=== PATIENT | male | born 1960 | race Two or more races ===

== ENCOUNTER 2025-01-31 09:50 | Inpatient (IN) | payer OTHER ==
[~2025-01-31] VITALS: Ht 177.8 cm; Wt 91.1 kg
[~2025-01-31 09:50] MED LIST: AMLO1TAB22 PO; ASPI-543 PO; GLIP10TA9 PO; HYDR12.59 PO; INSU100I70 SC; LEVO75TA6 PO; LISI20TA56 PO
--- NOTE | 2025-01-31 09:56 | ECG ---
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
[2025-01-31 10:55] LABS: Hematocrit 43.0 % (41.0-53.0); Hemoglobin 14.5 g/dL (13.5-17.5); Mean Corpuscular Hemoglobin 30.0 pg (28.0-32.0); Mean Corpuscular Volume 89.0 fL (80.0-100.0); Nucleated Red Blood Cells % 0.0 %
[2025-01-31 11:27] LABS: Albumin 4.7 g/dL (3.2-4.8); Anion Gap 11 (5-15); BUN/Creatinine Ratio 9.8 (10.0-20.0); Bilirubin, Total 0.9 mg/dL (0.2-1.0); Blood Urea Nitrogen 15 mg/dL (9-23); Calcium 10.1 mg/dL (8.7-10.4); Carbon Dioxide 28 mmol/L (20-31); Chloride 98 mmol/L (98-107); Potassium 3.9 mmol/L (3.5-5.1); Sodium 137 mmol/L (136-145); Total Protein 8.1 g/dL (5.7-8.2)
[2025-01-31 11:28] LABS: Alanine Aminotransferase 44 U/L (7-40); Alkaline Phosphatase 44 U/L (46-116); Glucose 294 mg/dL (74-106)
--- NOTE | 2025-01-31 12:15 | DVH ---
CLINICAL HISTORY: chest pain TECHNIQUE: Single view of the chest was obtained. COMPARISON: None FINDINGS: The heart size and pulmonary vasculature are normal. The lungs are clear. IMPRESSION: NO ACUTE CARDIOPULMONARY PROCESS.
[2025-01-31 12:55] VITALS: PULSE 92; RESP 14; O2SAT 98
--- NOTE | 2025-01-31 13:17 | ED.PDOC ---
History of Present Illness HPI Comments 64-year-old male presents to the ER with prior medical history of diabetes, hypertension and the chief complaint of chest pain. Patient reports on having a mild, on and off chest pain for one week for which worsened today and lasted longer associated with sweating and nausea. Family history of heart disease. Denies any other symptoms at this time. Denies chills, fever, /V/D, SOB. No other associated symptoms, modifiers, recent injuries or sick contacts present at this time. Chief Complaint: Chest Pain Time Seen by MD: 12:45 Reviewed Notes: Nurses Notes, Medications, Allergies Allergies: Coded Allergies: NO KNOWN ALLERGIES (Unverified , 01/31/25) Information Source: Patient Mode of Arrival: Ambulatory Severity: Moderate Timing: Days Duration: Since onset, Days Prehospital treatment: None Past Medical History PAST MEDICAL HISTORY: DM, HTN Surgical History: Denies all surgeries Family History Family History: Reviewed,noncontributory to illness, Family hx of heart sandi Social History Smoker: Non-Smoker Alcohol: Denies ETOH Use Drugs: Denies Drug Use Lives In: Home Constitutional: reports: sweats; denies: chills, diaphoresis, fatigue, fever, malaise, weakness, others EENTM: denies: blurred vision, double vision, ear bleeding, ear discharge, ear drainage, ear pain, ear ringing, eye pain, eye redness, hearing loss, mouth pain, mouth swelling, nasal discharge, nose bleeding, nose congestion, nose pain, photophobia, tearing, throat pain, throat swelling, voice changes, others Respiratory: denies: cough, hemoptysis, orthopnea, SOB at rest, shortness of breath, SOB with excertion, stridor, wheezing, others Cardiovascular: reports: chest pain; denies: dizzy spells, diaphoresis, Dyspnea on exertion, edema, irregular heart beat, left arm pain, lightheadedness, palpitations, PND, syncope, others Gastrointestinal: reports: nausea; denies: abdomen distended, abdominal pain, blood streaked bowels, constipated, diarrhea, dysphagia, difficulty swallowing, hematemesis, melena, poor appetite, poor fluid intake, rectal bleeding, rectal pain, vomiting, others Genitourinary: denies: burning, dysuria, flank pain, frequency, hematuria, incontinence, penile discharge, penile sore, pain, testicle pain, testicle swelling, urgency, others Neurological: denies: dizziness, fainting, headache, left sided numbness, left sided weakness, numbness, paresthesia, pre-existing deficit, right sided numbness, right sided weakness, seizure, speech problems, tingling, tremors, weakness, others Musculoskeletal: denies: back pain, gout, joint pain, joint swelling, muscle pain, muscle stiffness, neck pain, others Integumetry: denies: bruises, change in color, change in hair/nails, dryness, laceration, lesions, lumps, rash, wounds, others Allergic/Immunocompromised: denies: Difficulty Healing, Frequent Infections, Hives, Itching, others Hematologic/Lymphatic: denies: anemia, blood clots, easy bleeding, easy bruising, swollen glands, others Endocrine: denies: excessive hunger, excessive sweating, excessive thirst, excessive urination, flushing, intolerance to cold, intolerance to heat, unexplained weight gain, unexplained weight loss, others Psychiatric: denies: anxiety, bipolar disorder, depression, hopeless, panic disorder, schizophrenia, sleepless, suicidal, others All Other Systems: Reviewed and Negative Physical Exam General Appearance: No Apparent Distress, Normal HEENT: Normal ENT Inspection, Pharynx Normal, TMs Normal Neck: Full Range of Motion, Non-Tender, Normal, Normal Inspection Respiratory: Chest Non-Tender, Lungs Clear, No Accessory Muscle Use, No Respiratory Distress, Normal Breath Sounds Cardiovascular: No Edema, No JVD, No Murmur, No Gallop, Normal Peripheral Pulses, Regular Rate/Rhythm Breast Exam: Deferred Gastrointestinal: No Organomegaly, Non Tender, No Pulsatile Mass, Normal Bowel Sounds, Soft Genitalia: Deferred Pelvic: Deferred Rectal: Deferred Extremities: No calf tenderness, Normal capillary refill, Normal inspection, Normal range of motion, Non-tender, No pedal edema Musculoskeletal : Apperance: Normal 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 Was a procedure done?: No EKG EKG : Pulse Rate (adult): 92 [place]: Normal Cardiac Rhythm: NSR Block: None Hypertrophy: None ST: Normal Differential Dx Considerations may include: see mdm X-Ray, Labs, Meds, VS Vital Signs Date Time Temp Pulse Resp B/P (MAP) Pulse Ox O2 Delivery O2 Flow Rate FiO2 01/31/25 13:17 92 01/31/25 12:57 86 01/31/25 12:55 92 14 98 Room Air* 0 21 01/31/25 12:55 98.2 92 14 124/78 (93) 98 98.2 01/31/25 10:49 92 01/31/25 10:00 97.8 98 18 157/101 98 97.8 01/31/25 09:54 92 Lab Test 01/31/25 13:45 01/31/25 11:50 01/31/25 10:20 Range/Units White Blood Count 11.1 H 9.6 4.4-10.8 10^3/uL Red Blood Count 4.66 4.83 4.5-5.90 10^6/uL Hemoglobin 13.8 14.5 13.5-17.5 g/dL Hematocrit 41.4 43.0 41.0-53.0 % Mean Corpuscular Volume 89.0 89.0 80.0-100.0 fL Mean Corpuscular Hemoglobin 29.6 30.0 28.0-32.0 pg Mean Corpuscular Hemoglobin Concent 33.3 33.7 32.0-36.0 g/dL Red Cell Distribution Width 13.4 13.5 11.8-14.3 % Platelet Count 217 219 140-450 10^3/uL Mean Platelet Volume 10.8 10.8 6.9-10.8 fL Neutrophils (%) (Auto) 78.2 75.8 37.0-80.0 % Lymphocytes (%) (Auto) 15.2 15.1 10.0-50.0 % Monocytes (%) (Auto) 5.2 6.5 0.0-12.0 % Eosinophils (%) (Auto) 1.1 2.2 0.0-7.0 % Basophils (%) (Auto) 0.3 0.4 0.0-2.0 % Neutrophils # (Auto) 8.7 H 7.3 1.6-8.6 10 ^3/uL Lymphocytes # (Auto) 1.7 1.4 0.4-5.4 10 ^3/uL Monocytes # (Auto) 0.6 0.6 0-1.3 10 ^3/uL Eosinophils # (Auto) 0.1 0.2 0-0.8 10 ^3/uL Basophils # (Auto) 0 0 0-0.2 10 ^3/uL Nucleated Red Blood Cells 0.0 0.0 % Prothrombin Time 10.9 9.3-11.8 sec Prothrombin Time INR 1.03 0.9-1.15 Activated Partial Thromboplast Time 29.9 24.5-34.5 SEC Troponin I High Sensitivity 1175 *H Pending Sodium Level 137 136-145 mmol/L Potassium Level 3.9 3.5-5.1 mmol/L Chloride Level 98 98-107 mmol/L Carbon Dioxide Level 28 20-31 mmol/L Anion Gap 11 5-15 Blood Urea Nitrogen 15 9-23 mg/dL Creatinine 1.53 H 0.700-1.30 mg/dL Glomerular Filtration Rate Calc 51 >90 mL/min BUN/Creatinine Ratio 9.8 L 10.0-20.0 Serum Glucose 294 H 74-106 mg/dL Calcium Level 10.1 8.7-10.4 mg/dL Total Bilirubin 0.9 0.2-1.0 mg/dL Aspartate Amino Transferase (AST) 28 13-40 U/L Alanine Aminotransferase (ALT) 44 H 7-40 U/L Alkaline Phosphatase 44 L 46-116 U/L Total Protein 8.1 5.7-8.2 g/dL Albumin 4.7 3.2-4.8 g/dL Current Medications Medications (Trade) Dose Ordered Sig/Alysa Route Start Time Stop Time Status Last Admin Aspirin 81 mg ONCE ONCE PO 01/31/25 13:45 01/31/25 13:46 DC 01/31/25 13:48 Heparin Sodium/ Dextrose 250 ml @ 10 mls/hr Q24H IV 01/31/25 13:45 01/31/25 14:21 Heparin Sodium (Porcine) 5,000 units ONCE ONCE IV 01/31/25 13:45 01/31/25 13:46 DC 01/31/25 13:49 Time of 1ST Reevaluation: 13:15 Reevaluation 1ST: Unchanged Patient Education/Counseling: Diagnosis, Treatment, Prognosis Family Education/Counseling: No Family Present SEPSIS Sepsis Screen Date sepsis recognized/suspect: Jan 31, 2025 Time Sepsis recognized/suspect: 1003 Recent Procedure: No On Antibiotic Therapy: No Respiratory Rate >20: No Heart Rate >90: No Temp<36 C (96.8 F) or >38.3 C: No SBP <90 or MAP <65 mmHG: No New Acute Mental Status Change: No Is the patient on CPAP, BIPAP,: No Physician Orders Troponin-I Hs (01/31/25 12:52) Electrocardigram (01/31/25 10:52) Electrocardigram (01/31/25 12:52) Chest Portable (01/31/25 11:42) Platelet Monitoring (01/31/25 13:38) Heparin Per Standardized Proce (01/31/25 13:38) Discontinue All Im Injections (01/31/25 13:38) Heparin Drip/D5w 100units/Ml (01/31/25 13:45) Stat Ekg For Chest Pain (01/31/25 13:38) Platelet Monitoring (01/31/25 13:40) Heparin Per Standardized Proce (01/31/25 13:40) Discontinue All Im Injections (01/31/25 13:40) Stat Ekg For Chest Pain (01/31/25 13:40) Vital Signs Date Time Temp Pulse Resp B/P (MAP) Pulse Ox O2 Delivery O2 Flow Rate FiO2 01/31/25 13:17 92 01/31/25 12:57 86 01/31/25 12:55 92 14 98 Room Air* 0 21 01/31/25 12:55 98.2 92 14 124/78 (93) 98 98.2 01/31/25 10:49 92 01/31/25 10:00 97.8 98 18 157/101 98 97.8 01/31/25 09:54 92 Laboratory Tests Test 01/31/25 10:20 01/31/25 13:45 White Blood Count 9.6 10^3/uL (4.4-10.8) 11.1 10^3/uL (4.4-10.8) H Medications Medications Dose Ordered Sig/Alysa Route Start Time Stop Time Status Last Admin Dose Admin Aspirin 81 mg ONCE ONCE PO 01/31/25 13:45 01/31/25 13:46 DC 01/31/25 13:48 Heparin Sodium (Porcine) 5,000 units ONCE ONCE IV 01/31/25 13:45 01/31/25 13:46 DC 01/31/25 13:49 Heparin Sodium/ Dextrose 250 ml @ 10 mls/hr Q24H IV 01/31/25 13:45 01/31/25 14:21 Departure 1 Departure Time of Disposition: 14:27 (The patient is a 64-year-old male with a history of hypertension and type 2 diabetes who presents with sharp left-sided chest pain. His clinical presentation and rising cardiac biomarkers are consistent with NSTEMI, representing an acute, life-threatening condition requiring critical carelevel management.Data Reviewed / Independent Interpretation:I independently reviewed and interpreted all diagnostic studies obtained during this visit:CBC: benign, no leukocytosis or anemia.BMP: benign except creatinine 1.53, reflecting chronic kidney disease vs. mild RENARD; glucose 294, consistent with hyperglycemia.EKG: independently interpreted by me; shows no STEMI, no acute ischemic changes, no arrhythmia.Initial troponin 610 ? repeat troponin 1175, confirming rising myocardial injury and consistent with evolving NSTEMI.Chest X- ray: independently reviewed; no acute cardiopulmonary process.The rising troponin trend in conjunction with persistent chest pain significantly increases the risk of acute coronary syndrome complications, including malignant arrhythmias, cardiogenic shock, and infarct progression.Assessment, Differential & Management:Differential diagnoses included NSTEMI, unstable angina, aortic dissection, pulmonary embolism, myocarditis, pericarditis, and non-cardiac causes of chest pain. Given the patients risk factors, symptoms, and rising troponin levels, NSTEMI is the leading and confirmed diagnosis.Acute management included:Aspirin administered for antiplatelet therapy.Heparin drip initiated for anticoagulation per ACS protocol.Telemetry monitoring for arrhythmia surveillance.Serial reassessments for chest pain and hemodynamic stability.Preparation for cardiology evaluation and inpatient management, including potential catheterization.The patient remains hemodynamically stable but at high risk for sudden deterioration, including arrhythmias, infarct extension, and decompensated heart failure. Inpatient admission is medically required for ongoing ACS treatment, serial cardiac enzymes, and cardiology- directed care. I coordinated admission with the receiving team.CRITICAL CARE TIME: 41 MINUTESA total of 41 minutes of critical care time was provided, exclusive of separately billable procedures. Critical care was required due to the immediate risk of life-threatening deterioration from NSTEMI with rising troponins.Critical care activities included:Continuous cardiac monitoring and serial bedside reassessmentsIndependent interpretation of EKG, labs, chest X- rayReview and integration of cardiac biomarker trendsManagement of ACS with aspirin and initiation of heparin infusionAdjustment of treatment plan based on evolving clinical dataFrequent evaluation for arrhythmia, hemodynamic instability, and worsening ischemiaCoordination of care with cardiology and the admitting hospital teamHigh-intensity medical decision making throughout his ED courseThe patient was at high risk for malignant arrhythmias, infarct progression, and cardiogenic collapse, warranting critical care.) Impression: Primary Impression: NSTEMI (non-ST elevated myocardial infarction) Additional Impression: Acute chest pain Disposition: ADMITTED INPATIENT Admit to: Tele Condition: Guarded Critical Care Note Critical Care Time?: Yes Stability Stability form required: No Heart Score Heart Score: Heart Score Response (Comments) Value History Moderate Suspicious 1 EKG Repolarization Disturb 1 Age 45-64 1 Risk Factors 1 or 2 risk factors 1 Troponin >3 x's Normal limit 2 Total 6 I personally scribed for JAIMEE PLASCENCIA MD ([email or web address]) on 01/31/25 at 13:17. Electronically submitted by Jerzy Fitzpatrick ([email or web address]). JAIMEE PLASCENCIA MD Jan 31, 2025 13:17
[2025-01-31] MEDS ORDERED: HEPARIN DRIP/D5W 100UNITS/ML 250 ML IV SCH (13:45)
[2025-01-31] MEDS: HEPARIN SODIUM (PORCINE) 5000 UNITS/ML 1ML VIAL IV ONE (13:49)
[2025-01-31 13:58] LABS: Hematocrit 41.4 % (41.0-53.0); Hemoglobin 13.8 g/dL (13.5-17.5); Mean Corpuscular Hemoglobin 29.6 pg (28.0-32.0); Mean Corpuscular Volume 89.0 fL (80.0-100.0); Nucleated Red Blood Cells % 0.0 %
[2025-01-31 14:14] LABS: INR 1.03 (0.9-1.15); Partial Thromboplastin Time 29.9 SEC (24.5-34.5); Prothrombin Time 10.9 sec (9.3-11.8)
[2025-01-31] MEDS: HEPARIN DRIP/D5W 100UNITS/ML 250 ML IV SCH (14:21)
--- NOTE | 2025-01-31 14:46 | ECG ---
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
[2025-01-31 16:42] LABS: Urine Protein, UAD Negative (Negative)
[2025-01-31] MEDS ORDERED: MORPHINE SULFATE 4 MG/ML SYR/VIAL IV PRN (17:15)
[2025-01-31] MEDS ORDERED: ONDANSETRON HCL 4 MG/2 ML VIAL IV PRN ×2 (17:15→20:30)
[2025-01-31] MEDS ORDERED: NITROGLYCERIN 0.4 MG SL TAB SL PRN ×2 (17:15→20:30)
--- NOTE | 2025-01-31 17:49 | CONS ---
Pharmacy Clinical Information: HEPARIN RATE AT 10 ML/HR NEXT APTT ON 01/31 AT 2000. BABAK EMANUEL CONFIRMED AND READ BACK ESTRELLA MCCORD PHARMACIST Jan 31, 2025 17:49
--- NOTE | 2025-01-31 17:51 | ECG ---
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
--- NOTE | 2025-01-31 19:40 | ECG ---
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
[2025-01-31 19:55] VITALS: RESP 16; O2SAT 98
[2025-01-31] MEDS ORDERED: DEXTROSE (50%) 50ML SYRG IV PRN (20:30)
[2025-01-31] MEDS ORDERED: DOCUSATE SOD 100 MG CAP PO PRN (20:30)
[2025-01-31] MEDS ORDERED: MORPHINE SULFATE INJ 2 MG/ml SYRG IV PRN (20:30)
[2025-01-31] MEDS ORDERED: HYDROcodone-ACET 5/325MG TAB PO PRN (20:30)
--- NOTE | 2025-01-31 20:43 | DVHHP2 ---
History of Present Illness Reason for Visit: NSTEMI (non-ST elevated myocardial infarction) History of Present Illness The patient is a 64-year-old male with past medical history of hypothyroidism, d iabetes mellitus, and hypertension who presented to [facility] ED with complaint of chest pain. Patient reports he has been experiencing substernal chest pain, rating 7/10 numeric scale, associated with sweating, nausea, and generalized weakness. Patient was seen and evaluated in the ED, laboratory data shows WBC 11.1, platelets 217, sodium 137, potassium 3.9, BUN 15, creatinine 1.53, glucose 294, calcium 10.1, troponin 3748, AST 28, ALT 44, blood pressure 148/92, heart rate 76, temperature 98.2 F, O2 saturation 97% on room air. Chest x-ray show no acute cardiopulmonary disease. Patient was started on heparin drip, please see medication orders section in the computer. On my assessment, patient denied chest pain, no headache, dizziness, diaphoresis, shortness of breaths, no abdominal pain, diarrhea, nausea, vomiting, fever, no chills. Patient was admitted for further evaluation and medical management. Past Medical History DM, HTN, Hypothyroidism Past Surgical History Denies all surgeries Family History Reviewed, noncontributory to the management of this case. Past Social History The patient lives at home, denies smoking, alcohol or illicit drugs abuse. Review of Systems Constitutional: Yes: Sweats, Weakness; No: Fever, Chills, Malaise, Other Eyes: No: Pain, Vision change, Conjunctivae inflammation, Eyelid inflammation, Other, Redness ENT: No: Ear pain, Ear discharge, Nose pain, Nose discharge, Nose congestion, Mouth pain, Mouth swelling, Throat pain, Throat swelling, Other Respiratory: No: Cough, Dry, Shortness of breath, SOB with excertion, Wheezing, Hemoptysis, Pleuritic Pain, Sputum, Wheezing, Other Cardiovascular: Chest Pain; No: Palpitations, Orthopnea, Paroxysmal Noc. Dyspnea, Edema, Lt Headedness, Other Gastrointestinal: Nausea; No: Vomiting, Abdominal Pain, Diarrhea, Constipation, Melena, Hematochezia, Other Genitourinary: No Dysuria, No Frequency, No Incontinence, No Hematuria, No Retention, No Other Musculoskeletal: No: other, neck pain, shoulder pain, arm pain, back pain, hand pain, leg pain, foot pain Skin: No: Rash, Lesions, Jaundice, Bruising, Other Neurological: No: Weakness, Numbness, Incoordination, Change in speech, Confusion, Seizures, Other Allergies: Coded Allergies: NO KNOWN ALLERGIES (Unverified , 01/31/25) Medications Current Medications Medications Dose Ordered Sig/Alysa Route Start Time Stop Time Status Last Admin Dose Admin Heparin Sodium/ Dextrose 250 ml @ 10 mls/hr Q24H IV 01/31/25 13:45 01/31/25 14:21 10 MLS/HR Morphine Sulfate 4 mg [id number] PRN IV 01/31/25 17:15 Ondansetron HCl 4 mg Q4HPRN PRN IV 01/31/25 17:15 Nitroglycerin 0.4 mg ONCE PRN SL 01/31/25 17:15 Amlodipine Besylate 5 mg DAILY PO 02/01/25 10:00 UNV Carvedilol 12.5 mg Q12HR PO 01/31/25 22:00 UNV Levothyroxine Sodium 88 mcg QAM@0600 PO 02/01/25 06:00 UNV Diagnostic Test (Pha) 1 strip IQ4HR 02/01/25 00:00 UNV Insulin Human Regular IQ4HR SC 02/01/25 00:00 UNV Dextrose 50 ml UD PRN IV 01/31/25 20:30 UNV Sodium Chloride 10 ml Q8HR IV 01/31/25 22:00 UNV Acetaminophen/ Hydrocodone Bitart 1 tab Q4HP PRN PO 01/31/25 20:30 UNV Ondansetron HCl 4 mg Q4HP PRN IV 01/31/25 20:30 UNV Docusate Sodium 100 mg BIDPRN PRN PO 01/31/25 20:30 UNV Exam Vital Signs Vital Signs Date Time Temp Pulse Resp B/P (MAP) Pulse Ox O2 Delivery O2 Flow Rate FiO2 01/31/25 20:00 82 01/31/25 19:00 98.2 14 138/89 (105) 97 98.2 01/31/25 12:55 Room Air* 0 21 General Appearance: Alert, Oriented X3, Cooperative, No acute distress HEENT: Atraumatic, PERRLA, EOMI, Mucous membr. moist/pink Respiratory: Normal air movement Cardiovascular: Regular rate, Normal S1, Normal S2, No murmurs Abdominal: Normal bowel sounds, Soft, No tenderness, No hepatospenomegaly, No masses Extremities: No clubbing, No cyanosis, No edema, Normal pulses, No tenderness/swelling Skin: No rashes, No significant lesion Neuro: Normal speech, Normal tone, Sensation intact, Cranial nerves 3-12 NL, Reflexes 2+, Other (Generalized weakness) Psych/Mental Status: Mental status NL, Mood NL Labs/Xrays Labs Test 01/31/25 20:00 01/31/25 16:10 01/31/25 15:11 01/31/25 13:45 Range/Units Urine Color Light-yellow Yellow Urine Clarity Clear Clear Urine pH 5.5 5.0-9.0 Urine Specific [place] 1.012 1.001-1.035 Urine Protein Negative Negative Urine Ketones Negative Negative Urine Blood Negative Negative /uL Urine Nitrite Negative Negative Urine Bilirubin Negative Negative Urine Urobilinogen Normal Negative mg/dL Urine Leukocyte Esterase Negative Negative /uL Urine RBC 1 0 - 3 /hpf Urine Microscopic WBC < 1 0-3 /HPF Urine Squamous Epithelial Cells None seen <5 /hpf Urine Bacteria None seen None Seen /hpf Urine Glucose 4+ H Normal mg/dL Troponin I High Sensitivity 3748 *H </=54 ng/L White Blood Count 11.1 H 4.4-10.8 10^3/uL Red Blood Count 4.66 4.5-5.90 10^6/uL Hemoglobin 13.8 13.5-17.5 g/dL Hematocrit 41.4 41.0-53.0 % Mean Corpuscular Volume 89.0 80.0-100.0 fL Mean Corpuscular Hemoglobin 29.6 28.0-32.0 pg Mean Corpuscular Hemoglobin Concent 33.3 32.0-36.0 g/dL Red Cell Distribution Width 13.4 11.8-14.3 % Platelet Count 217 140-450 10^3/uL Mean Platelet Volume 10.8 6.9-10.8 fL Neutrophils (%) (Auto) 78.2 37.0-80.0 % Lymphocytes (%) (Auto) 15.2 10.0-50.0 % Monocytes (%) (Auto) 5.2 0.0-12.0 % Eosinophils (%) (Auto) 1.1 0.0-7.0 % Basophils (%) (Auto) 0.3 0.0-2.0 % Neutrophils # (Auto) 8.7 H 1.6-8.6 10 ^3/uL Lymphocytes # (Auto) 1.7 0.4-5.4 10 ^3/uL Monocytes # (Auto) 0.6 0-1.3 10 ^3/uL Eosinophils # (Auto) 0.1 0-0.8 10 ^3/uL Basophils # (Auto) 0 0-0.2 10 ^3/uL Nucleated Red Blood Cells 0.0 % Test 01/31/25 10:20 Range/Units Sodium Level 137 136-145 mmol/L Potassium Level 3.9 3.5-5.1 mmol/L Chloride Level 98 98-107 mmol/L Carbon Dioxide Level 28 20-31 mmol/L Anion Gap 11 5-15 Blood Urea Nitrogen 15 9-23 mg/dL Creatinine 1.53 H 0.700-1.30 mg/dL Glomerular Filtration Rate Calc 51 >90 mL/min BUN/Creatinine Ratio 9.8 L 10.0-20.0 Serum Glucose 294 H 74-106 mg/dL Calcium Level 10.1 8.7-10.4 mg/dL Total Bilirubin 0.9 0.2-1.0 mg/dL Aspartate Amino Transferase (AST) 28 13-40 U/L Alanine Aminotransferase (ALT) 44 H 7-40 U/L Alkaline Phosphatase 44 L 46-116 U/L Total Protein 8.1 5.7-8.2 g/dL Albumin 4.7 3.2-4.8 g/dL PATIENT: YULIA KABA ACCT: [id number] UNIT: [id number] : 1960 LOC: ER ROOM / BED: / AGE / SEX: 64 / M ADM STATUS: REG ER SERVICE 1142 ORDERING PHYSICIAN: JAIMEE PLASCENCIA MD PROCEDURE(s): CXRP - CHEST PORTABLE REASON: chest pain ORDER NUMBER(s): [id number], ACCESSION NUMBER(s): [id number] CLINICAL HISTORY: chest pain TECHNIQUE: Single view of the chest was obtained. COMPARISON: None FINDINGS: The heart size and pulmonary vasculature are normal. The lungs are clear. IMPRESSION: NO ACUTE CARDIOPULMONARY PROCESS. SEPSIS Sepsis Screen Date sepsis recognized/suspect: Jan 31, 2025 Time Sepsis recognized/suspect: 1255 Recent Procedure: No On Antibiotic Therapy: No Respiratory Rate >20: No Heart Rate >90: Yes Temp<36 C (96.8 F) or >38.3 C: No SBP <90 or MAP <65 mmHG: No New Acute Mental Status Change: No Is the patient on CPAP, BIPAP,: No Physician Orders Platelet Monitoring (01/31/25 13:38) Heparin Per Standardized Proce (01/31/25 13:38) Discontinue All Im Injections (01/31/25 13:38) Heparin Drip/D5w 100units/Ml (01/31/25 13:45) Stat Ekg For Chest Pain (01/31/25 13:38) Platelet Monitoring (01/31/25 13:40) Heparin Per Standardized Proce (01/31/25 13:40) Discontinue All Im Injections (01/31/25 13:40) Stat Ekg For Chest Pain (01/31/25 13:40) PTPTT (01/31/25 20:00) Complete Blood Count (02/01/25 04:00) Heparin Per Pharmacy Protocol (01/31/25 14:34) *Consult Dr.Mukeshchandra Payton (01/31/25 16:00) * Cardiology Consult (01/31/25 16:01) Electrocardigram (01/31/25 17:05) Morphine Sulfate Injection (01/31/25 17:15) Ondansetron Hcl (Zofran) (01/31/25 17:15) Nitroglycerin Sublingual (Ntrostat Subli (01/31/25 17:15) Amlodipine Tablet (Norvasc Tablet) (02/01/25 10:00) Carvedilol Tablet (Coreg Tablet) (01/31/25 22:00) Consistent Carb(Ccho)Diabetes (02/01/25 Breakfast) Thyroid Stimulating Hormone (02/01/25 04:00) Levothyroxine Tablet (Synthroid Tablet) (02/01/25 06:00) Glucose Blood (Accu-Chek Comfort Curve T (02/01/25 00:00) Insulin R (Human) (Insulin R) (02/01/25 00:00) Dextrose 50% Syringe (01/31/25 20:30) Allergies (01/31/25 20:21) Code Status (01/31/25 20:21) Sodium Chloride Lock (Saline Lock Ns) (01/31/25 22:00) Oxygen Per Hour (01/31/25 20:) Hydrocodone-Acet 5/325mg Tab ([place] 32 (01/31/25 20:30) Ondansetron Hcl (Zofran) (01/31/25 20:30) Docusate Sodium Capsule (Colace Capsule) (01/31/25 20:30) Fall Risk Precautions In Place QSHIFT (01/31/25 20:21) Comprehensive Metabolic Panel (02/01/25 04:00) Admit (01/31/25 20:29) Nitroglycerin Sublingual (Ntrostat Subli (01/31/25 20:) Morphine Sulfate Injection (01/31/25 20:) Notify Of Changes From Base (01/31/25 20:) Tube Sizer Operator For 24 Hours (01/31/25 20:) Emergency Dysrhythmia Protocol (01/31/25 20:) Rhythm Strips Once Every Shift (01/31/25 20:29) Oxygen By Nasal Cannula (01/31/25 20:29) Vital Signs Date Time Temp Pulse Resp B/P (MAP) Pulse Ox O2 Delivery O2 Flow Rate FiO2 01/31/25 20:00 82 01/31/25 19:00 98.2 66 14 138/89 (105) 97 98.2 01/31/25 18:00 76 15 148/92 (110) 95 01/31/25 17:00 79 20 151/92 (111) 95 01/31/25 16:11 84 01/31/25 16:00 102 01/31/25 16:00 98.1 98 18 147/81 (103) 96 98.1 01/31/25 15:00 82 16 143/94 (110) 96 01/31/25 14:00 88 15 141/92 (108) 97 01/31/25 13:17 92 01/31/25 12:57 86 01/31/25 12:55 92 14 98 Room Air* 0 21 01/31/25 12:55 98.2 92 14 124/78 (93) 98 98.2 Laboratory Tests Test 01/31/25 10:20 01/31/25 13:45 White Blood Count 9.6 10^3/uL (4.4-10.8) 11.1 10^3/uL (4.4-10.8) H Medications Medications Dose Ordered Sig/Alysa Route Start Time Stop Time Status Last Admin Dose Admin Aspirin 81 mg ONCE ONCE PO 01/31/25 13:45 01/31/25 13:46 DC 01/31/25 13:48 81 MG Heparin Sodium (Porcine) 5,000 units ONCE ONCE IV 01/31/25 13:45 01/31/25 13:46 DC 01/31/25 13:49 5,000 UNITS Heparin Sodium/ Dextrose 250 ml @ 10 mls/hr Q24H IV 01/31/25 13:45 01/31/25 14:21 10 MLS/HR Assessment/Plan Assessment/Plan NSTEMI (non-ST elevated myocardial infarction) Acute chest pain Acute renal injury Diabetes mellitus with hyperglycemia Generalized weakness Plan 1. Admit to telemetry unit 2. Breathing treatment 3. Pain control management 4. Management of fluids and electrolytes 5. Consultation for Cardiology 6. Diagnostic tests chest x-ray 7. DVT prophylaxis-on heparin drip 8. Repeat labs CBC, CMP in a.m. 9. Continue with current medical management 10. Treatment plan discussed with patient and RN. Patient verbalized understanding. Plan discussed with: Patient, Other (RN) My Orders Orders - JANA STAPLES DNP Procedure Category Date Status Time Amlodipine Tablet PHA 02/01/25 Logged (Norvasc Tablet) 10:00 Carvedilol Tablet PHA 01/31/25 Logged (Coreg Tablet) 22:00 Consistent DIET 02/01/25 Transmitted Carb(Ccho)Diabetes Breakfast Thyroid Stimulating LAB 02/01/25 Verified Hormone 04:00 Levothyroxine Tablet PHA 02/01/25 Logged (Synthroid Tablet) 06:00 Glucose Blood PHA 02/01/25 Logged (Accu-Chek Comfort 00:00 Insulin R (Human) PHA 02/01/25 Logged (Insulin R) 00:00 Dextrose 50% Syringe PHA 01/31/25 Logged 20:30 Allergies JOEL 01/31/25 In Process 20:21 Code Status CODE 01/31/25 Transmitted 20:21 Sodium Chloride Lock PHA 01/31/25 Logged (Saline Lock Ns) 22:00 Oxygen Per Hour RT 01/31/25 Transmitted 20:21 Hydrocodone-Acet [facility] 01/31/25 Logged 5/325mg Tab ([place] 20:30 Ondansetron Hcl PHA 01/31/25 Logged (Zofran) 20:30 Docusate Sodium [facility] 01/31/25 Logged Capsule (Colace 20:30 Fall Risk Precautions [facility] 01/31/[address] 20:21 Comprehensive LAB 02/01/25 Verified Metabolic Panel 04:00 Admit ADMIT 01/31/25 Verified 20:29 Nitroglycerin PHA 01/31/25 Verified Sublingual (Ntrostat 20:30 Morphine Sulfate [facility] 01/31/25 Verified Injection 20:30 Notify Md Of Changes [facility] 01/31/25 Verified From Base 20:29 Tube Sizer Operator For [facility] 01/31/25 Verified 24 Hours 20:29 Emergency Dysrhythmia [facility] 01/31/25 Verified Protocol 20:29 Rhythm Strips Once [facility] 01/31/25 Verified Every Shift 20:29 Oxygen By Nasal RT 01/31/25 Verified Cannula 20:29 Problem List: (1) NSTEMI (non-ST elevated myocardial infarction) (2) Acute chest pain (3) Acute renal injury (4) Diabetes mellitus with hyperglycemia (5) Generalized weakness Date of Service: Jan 31, 2025 Billing Provider: JANA STAPLES DNP Common Visit Codes: [id number] INP/OBS CARE (HIGH) JANA STAPLES DNP Jan 31, 2025 20:43
[2025-01-31 20:44] LABS: INR 1.02 (0.9-1.15); Partial Thromboplastin Time 54.8 SEC (24.5-34.5); Prothrombin Time 10.8 sec (9.3-11.8)
[2025-01-31] MEDS: SODIUM CHLOR 0.9% PF (SALINE LOCK) 10ML VIAL/SYR IV SCH (22:00)
[2025-01-31] MEDS: CARVEDILOL 12.5 MG TAB PO SCH (22:44)
--- NOTE | 2025-01-31 23:16 | DVHINCON2 ---
Date of service: Jan 31, 2025 Referring Physician Pedro Reason for Consultation NSTEMI History of Present Illness This is a 64-year-old male with a prior medical history of diabetes, hypertension who presents to the ED with complaints of chief complaint of chest pain. Patient reports on having a mild, on and off chest pain for one week for which worsened today and lasted longer associated with sweating and nausea. Patietn reports a family history of heart disease. WBC 11.1, platelets 217, sodium 137, potassium 3.9, BUN 15, creatinine 1.53, glucose 294, calcium 10.1, troponin 3748, AST 28, ALT 44. Chest x-ray showed NAD. EKG is NSR at 92. Patient was admitted to the hospital. I am asked to consult on this patient. Allergies: Coded Allergies: NO KNOWN ALLERGIES (Unverified , 01/31/25) Current Medications Current Medications Medications (Trade) Dose Ordered Sig/Alysa Route PRN Reason Start Time Stop Time Status Last Admin Heparin Sodium/ Dextrose 250 ml @ 10 mls/hr Q24H IV 01/31/25 13:45 01/31/25 14:21 Heparin Sodium/ Dextrose 250 ml @ 10.8 mls/hr Q23H9M IV 01/31/25 13:45 01/31/25 13:57 DC Morphine Sulfate 4 mg [id number] PRN IV chest pain 01/31/25 17:15 Ondansetron HCl (Zofran) 4 mg Q4HPRN PRN IV n/v 01/31/25 17:15 Nitroglycerin (Ntrostat Sublingual) 0.4 mg ONCE PRN SL chest pain 01/31/25 17:15 Review of Systems Constitutional: reports: sweats; denies: chills, diaphoresis, fatigue, fever, malaise, weakness, others EENTM: denies: blurred vision, double vision, ear bleeding, ear discharge, ear drainage, ear pain, ear ringing, eye pain, eye redness, hearing loss, mouth pain , mouth swelling, nasal discharge, nose bleeding, nose congestion, nose pain, photophobia, tearing, throat pain, throat swelling, voice changes, others Respiratory: denies: cough, hemoptysis, orthopnea, SOB at rest, shortness of breath, SOB with excertion, stridor, wheezing, others Cardiovascular: reports: chest pain; denies: dizzy spells, diaphoresis, Dyspnea on exertion, edema, irregular heart beat, left arm pain, lightheadedness, palpitations, PND, syncope, others Gastrointestinal: reports: nausea; denies: abdomen distended, abdominal pain, blood streaked bowels, constipated, diarrhea, dysphagia, difficulty swallowing, hematemesis, melena, poor appetite, poor fluid intake, rectal bleeding, rectal pain, vomiting, others Genitourinary: denies: burning, dysuria, flank pain, frequency, hematuria, incontinence, penile discharge, penile sore, pain, testicle pain, testicle swelling, urgency, others Neurological: denies: dizziness, fainting, headache, left sided numbness, left sided weakness, numbness, paresthesia, pre-existing deficit, right sided numbness, right sided weakness, seizure, speech problems, tingling, tremors, weakness, others Musculoskeletal: denies: back pain, gout, joint pain, joint swelling, muscle pain, muscle stiffness, neck pain, others Integumetry: denies: bruises, change in color, change in hair/nails, dryness, laceration, lesions, lumps, rash, wounds, others Allergic/Immunocompromised: denies: Difficulty Healing, Frequent Infections, Hives, Itching, others Hematologic/Lymphatic: denies: anemia, blood clots, easy bleeding, easy bruising, swollen glands, others Endocrine: denies: excessive hunger, excessive sweating, excessive thirst, excessive urination, flushing, intolerance to cold, intolerance to heat, unexplained weight gain, unexplained weight loss, others Psychiatric: denies: anxiety, bipolar disorder, depression, hopeless, panic disorder, schizophrenia, sleepless, suicidal, others All Other Systems: Reviewed and Negative Vital Signs Vital Signs Date Time Temp Pulse Resp B/P (MAP) Pulse Ox O2 Delivery O2 Flow Rate FiO2 01/31/25 16:11 84 01/31/25 15:00 16 143/94 (110) 96 01/31/25 12:55 Room Air* 0 21 01/31/25 12:55 98.2 98.2 Physical Exam GENERAL: Alert and oriented x 3. No acute distress. EYES: PERRL, EOMI. Anicteric. HENT: Moist mucous membranes. LUNGS: Clear to auscultation bilaterally. CARDIOVASCULAR: Regular rate and rhythm. ABDOMEN: Soft, nontender and nondistended. EXTREMITIES: No edema. NEUROLOGIC: No focal neurological deficits. SKIN: Warm, dry. Labs/Diagnostic Data Labs Test 01/31/25 16:10 01/31/25 15:11 01/31/25 13:45 01/31/25 10:20 Range/Units Urine Color Light-yellow Yellow Urine Clarity Clear Clear Urine pH 5.5 5.0-9.0 Urine Specific [place] 1.012 1.001-1.035 Urine Protein Negative Negative Urine Ketones Negative Negative Urine Blood Negative Negative /uL Urine Nitrite Negative Negative Urine Bilirubin Negative Negative Urine Urobilinogen Normal Negative mg/dL Urine Leukocyte Esterase Negative Negative /uL Urine RBC 1 0 - 3 /hpf Urine Microscopic WBC < 1 0-3 /HPF Urine Squamous Epithelial Cells None seen <5 /hpf Urine Bacteria None seen None Seen /hpf Urine Glucose 4+ H Normal mg/dL Troponin I High Sensitivity 3748 *H </=54 ng/L White Blood Count 11.1 H 4.4-10.8 10^3/uL Red Blood Count 4.66 4.5-5.90 10^6/uL Hemoglobin 13.8 13.5-17.5 g/dL Hematocrit 41.4 41.0-53.0 % Mean Corpuscular Volume 89.0 80.0-100.0 fL Mean Corpuscular Hemoglobin 29.6 28.0-32.0 pg Mean Corpuscular Hemoglobin Concent 33.3 32.0-36.0 g/dL Red Cell Distribution Width 13.4 11.8-14.3 % Platelet Count 217 140-450 10^3/uL Mean Platelet Volume 10.8 6.9-10.8 fL Neutrophils (%) (Auto) 78.2 37.0-80.0 % Lymphocytes (%) (Auto) 15.2 10.0-50.0 % Monocytes (%) (Auto) 5.2 0.0-12.0 % Eosinophils (%) (Auto) 1.1 0.0-7.0 % Basophils (%) (Auto) 0.3 0.0-2.0 % Neutrophils # (Auto) 8.7 H 1.6-8.6 10 ^3/uL Lymphocytes # (Auto) 1.7 0.4-5.4 10 ^3/uL Monocytes # (Auto) 0.6 0-1.3 10 ^3/uL Eosinophils # (Auto) 0.1 0-0.8 10 ^3/uL Basophils # (Auto) 0 0-0.2 10 ^3/uL Nucleated Red Blood Cells 0.0 % Prothrombin Time 10.9 9.3-11.8 sec Prothrombin Time INR 1.03 0.9-1.15 Activated Partial Thromboplast Time 29.9 24.5-34.5 SEC Sodium Level 137 136-145 mmol/L Potassium Level 3.9 3.5-5.1 mmol/L Chloride Level 98 98-107 mmol/L Carbon Dioxide Level 28 20-31 mmol/L Anion Gap 11 5-15 Blood Urea Nitrogen 15 9-23 mg/dL Creatinine 1.53 H 0.700-1.30 mg/dL Glomerular Filtration Rate Calc 51 >90 mL/min BUN/Creatinine Ratio 9.8 L 10.0-20.0 Serum Glucose 294 H 74-106 mg/dL Calcium Level 10.1 8.7-10.4 mg/dL Total Bilirubin 0.9 0.2-1.0 mg/dL Aspartate Amino Transferase (AST) 28 13-40 U/L Alanine Aminotransferase (ALT) 44 H 7-40 U/L Alkaline Phosphatase 44 L 46-116 U/L Total Protein 8.1 5.7-8.2 g/dL Albumin 4.7 3.2-4.8 g/dL Assessment NSTEMI (non-ST elevated myocardial infarction). Chest pain. RENARD. Diabetes mellitus with hyperglycemia. Generalized weakness. Plan/Recommendation I agree with your ongoing assessment and care of plan. Morphine and [place] for pain management. Amlodipine, Coreg. Heparin drip per pharmacy. Nitro SL. Additional plan as per the hospital course. A total of 45 minutes was spent reviewing the patient record, examining the patient, making a diagnostic and therapeutic plan, discussing this plan with medical personnel, following up on diagnostic studies and following the patient for clinical stability excluding any and all procedures. At least 50% of this time was spent in direct, [id number] contact. Plan discussed with: Patient GATITO CRONIN MD Jan 31, 2025 17:33
[2025-02-01] VITALS (8 sets, daily range): BP systolic 115–124; BP diastolic 76–82; PULSE 62–78; RESP 16–20; TEMP 97.6–98.5; O2SAT 97–98
[2025-02-01] MEDS: ACCU-CHEK COMFORT CURVE STRIP VI SCH (01:48)
[2025-02-01] MEDS: InsuLIN REG 1unit/0.01ml Soln (100units/ml) SC SCH (01:58)
[2025-02-01] MEDS: LEVOTHYROXINE SODIUM 88 MCG TAB PO SCH (05:52)
[2025-02-01 10:31] LABS: Hematocrit 39.3 % (41.0-53.0); Hemoglobin 13.6 g/dL (13.5-17.5); Mean Corpuscular Hemoglobin 30.7 pg (28.0-32.0); Mean Corpuscular Volume 88.5 fL (80.0-100.0); Nucleated Red Blood Cells % 0.1 %
[2025-02-01 12:34] LABS: INR 1.04 (0.9-1.15); Partial Thromboplastin Time 51.0 SEC (24.5-34.5); Prothrombin Time 11.0 sec (9.3-11.8)
--- NOTE | 2025-02-01 12:58 | DVHPN2 ---
Subjective No chest pain Reviewed: H&P Changes from previous H/P or p: No Changes Eyes: No Pain, No Vision change, No Conjunctivae inflammation, No Eyelid inflammation, No Other, No Redness ENT: No Ear pain, No Ear discharge, No Nose pain, No Nose discharge, No Nose congestion, No Mouth pain, No Mouth swelling, No Throat pain, No Throat swelling, No Other Cardiovascular: Chest Pain; No Palpitations, No Orthopnea, No Paroxysmal Noc. Dyspnea, No Edema, No Lt Headedness, No Other Respiratory: No Cough, No Dry, No Shortness of breath, No SOB with excertion, No Wheezing, No Hemoptysis, No Pleuritic Pain, No Sputum, No Other Gastrointestinal: Nausea; No Vomiting, No Abdominal Pain, No Diarrhea, No Constipation, No Melena, No Hematochezia, No Other Genitourinary: No Dysuria, No Frequency, No Incontinence, No Hematuria, No Retention, No Other Musculoskeletal: No other, No neck pain, No shoulder pain, No arm pain, No back pain, No hand pain, No leg pain, No foot pain Skin: No Rash, No Lesions, No Jaundice, No Bruising, No Other Objective Vitals Vital Signs Date Time Temp Pulse Resp B/P (MAP) Pulse Ox O2 Delivery O2 Flow Rate FiO2 02/01/25 12:15 98.4 73 20 115/79 (91) 97 98.4 02/01/25 03:06 Room Air* 0 21 Intake/Output Intake and Output 02/01/25 07:00 Intake Total 100 ml Output Total 200 ml Balance -100 ml Intake Oral 0 ml IV Total 100 ml Output Urine Total 200 ml General Appearance: Alert, Oriented X3 HEENT: Atraumatic Lungs: Clear to auscultation Cardiovascular: Regular rate, Normal S1, Normal S2 Abdomen: Normal bowel sounds Medications Current Medications Medications Dose Ordered Sig/Alysa Route Start Time Stop Time Status Last Admin Dose Admin Heparin Sodium/ Dextrose 250 ml @ 10 mls/hr Q24H IV 01/31/25 13:45 01/31/25 14:21 10 MLS/HR Morphine Sulfate 4 mg [id number] PRN IV 01/31/25 17:15 Ondansetron HCl 4 mg Q4HPRN PRN IV 01/31/25 17:15 Nitroglycerin 0.4 mg ONCE PRN SL 01/31/25 17:15 Amlodipine Besylate 5 mg DAILY PO 02/01/25 10:00 02/01/25 09:12 5 MG Carvedilol 12.5 mg Q12HR PO 01/31/25 22:00 02/01/25 09:12 12.5 MG Levothyroxine Sodium 88 mcg QAM@0600 PO 02/01/25 06:00 02/01/25 05:52 88 MCG Diagnostic Test (Pha) 1 strip IQ4HR 02/01/25 00:00 02/01/25 04:38 1 STRIP Insulin Human Regular IQ4HR SC 02/01/25 00:00 02/01/25 08:22 2 UNITS Dextrose 50 ml UD PRN IV 01/31/25 20:30 Sodium Chloride 10 ml Q8HR IV 01/31/25 22:00 02/01/25 05:52 10 ML Acetaminophen/ Hydrocodone Bitart 1 tab Q4HP PRN PO 01/31/25 20:30 Ondansetron HCl 4 mg Q4HP PRN IV 01/31/25 20:30 Docusate Sodium 100 mg BIDPRN PRN PO 01/31/25 20:30 Nitroglycerin 0.4 mg Q5MINP PRN SL 01/31/25 20:30 Morphine Sulfate 2 mg Q30M PRN IV 01/31/25 20:30 Laboratory Results Laboratory Tests 02/01/25 09:37 Chemistry Test 02/01/25 09:37 Albumin Pending Calcium Level Pending Total Protein Pending Coagulation Test 01/31/25 13:45 01/31/25 20:00 02/01/25 01:56 02/01/25 11:23 Prothrombin Time 10.9 sec (9.3-11.8) 10.8 sec (9.3-11.8) 11.0 sec (9.3-11.8) Prothrombin Time INR 1.03 (0.9-1.15) 1.02 (0.9-1.15) 1.04 (0.9-1.15) Activated Partial Thromboplast Time 29.9 SEC (24.5-34.5) 54.8 SEC (24.5-34.5) H 51.4 SEC (24.5-34.5) H 51.0 SEC (24.5-34.5) H LFT Test 02/01/25 09:37 Alanine Aminotransferase (ALT) Pending Alkaline Phosphatase Pending Aspartate Amino Transferase (AST) Pending Total Bilirubin Pending HgA1c, TSH Test 02/01/25 09:37 Thyroid Stimulating Hormone (TSH) 4.07 uIU/mL (0.55-4.78) Urinalysis Test 01/31/25 16:10 Urine Color Light-yellow (Yellow) Urine Clarity Clear (Clear) Urine pH 5.5 (5.0-9.0) Urine Specific [place] 1.012 (1.001-1.035) Urine Protein Negative (Negative) Urine Ketones Negative (Negative) Urine Blood Negative /uL (Negative) Urine Nitrite Negative (Negative) Urine Bilirubin Negative (Negative) Urine Urobilinogen Normal mg/dL (Negative) Urine Leukocyte Esterase Negative /uL (Negative) Urine RBC 1 /hpf (0 - 3) Urine Microscopic WBC < 1 /HPF (0-3) Urine Squamous Epithelial Cells None seen /hpf (<5) Urine Bacteria None seen /hpf (None Seen) Urine Glucose 4+ mg/dL (Normal) H Assessment/Plan Assessment/Plan NSTEMI (non-ST elevated myocardial infarction) Acute chest pain Acute renal injury Diabetes mellitus with hyperglycemia Generalized weakness Continue heparin drip Trend troponins Echo Cardiology on consult Plan discussed with: Patient Date of Service: Feb 01, 2025 Billing Provider: ALEXIA JACOBS MD Common Visit Codes: [id number] INP/OBS CARE(HIGH) ALEXIA JACOBS MD Feb 01, 2025 12:58
[2025-02-01 14:59] LABS: Albumin 4.0 g/dL (3.2-4.8); Anion Gap 11 (5-15); BUN/Creatinine Ratio 13.8 (10.0-20.0); Blood Urea Nitrogen 17 mg/dL (9-23); Calcium 9.5 mg/dL (8.7-10.4); Carbon Dioxide 25 mmol/L (20-31); Chloride 99 mmol/L (98-107); Potassium 4.2 mmol/L (3.5-5.1); Total Protein 6.8 g/dL (5.7-8.2)
[2025-02-01 15:00] LABS: Alanine Aminotransferase 46 U/L (7-40); Alkaline Phosphatase 40 U/L (46-116); Bilirubin, Total 0.7 mg/dL (0.2-1.0); Glucose 256 mg/dL (74-106); INR 1.03 (0.9-1.15); Partial Thromboplastin Time 50.4 SEC (24.5-34.5); Prothrombin Time 10.9 sec (9.3-11.8); Sodium 135 mmol/L (136-145)
[2025-02-01] MEDS ORDERED: METF-370 PO (20:39)
[2025-02-01] MEDS ORDERED: LEVO50TA7 PO (20:39)
--- NOTE | 2025-02-01 21:44 | DVHPN2 ---
Progress Note - Dictate Date Seen: Feb 01, 2025 Medical Necessity Reason Pt with a Central, PICC or Fol: No Subjective Patient was seen and evaluated in follow up. Patient is complaining of generalized pain. Patient is maintained on Heparin drip. AST 45, ALT 46. Telemetry reviewed. vital signs Vital Sign Date Time Temp Pulse Resp B/P (MAP) Pulse Ox O2 Delivery O2 Flow Rate FiO2 02/01/25 12:15 98.4 73 20 115/79 (91) 97 98.4 02/01/25 03:06 Room Air* 0 21 Total Intake and Output 01/31/25 01/31/25 02/01/25 15:00 23:00 07:00 Intake Total 10 ml 70 ml 20 ml Output Total 200 ml Balance 10 ml -130 ml 20 ml medications Current Medications Medications Dose Ordered Sig/Alysa Route Start Time Stop Time Status Last Admin Dose Admin Heparin Sodium/ Dextrose 250 ml @ 10 mls/hr Q24H IV 01/31/25 13:45 02/01/25 14:36 10 MLS/HR Morphine Sulfate 4 mg [id number] PRN IV 01/31/25 17:15 Ondansetron HCl 4 mg Q4HPRN PRN IV 01/31/25 17:15 Nitroglycerin 0.4 mg ONCE PRN SL 01/31/25 17:15 Amlodipine Besylate 5 mg DAILY PO 02/01/25 10:00 02/01/25 09:12 5 MG Carvedilol 12.5 mg Q12HR PO 01/31/25 22:00 02/01/25 09:12 12.5 MG Levothyroxine Sodium 88 mcg QAM@0600 PO 02/01/25 06:00 02/01/25 05:52 88 MCG Diagnostic Test (Pha) 1 strip IQ4HR 02/01/25 00:00 02/01/25 04:38 1 STRIP Insulin Human Regular IQ4HR SC 02/01/25 00:00 02/01/25 13:20 3 UNITS Dextrose 50 ml UD PRN IV 01/31/25 20:30 Sodium Chloride 10 ml Q8HR IV 01/31/25 22:00 02/01/25 05:52 10 ML Acetaminophen/ Hydrocodone Bitart 1 tab Q4HP PRN PO 01/31/25 20:30 Ondansetron HCl 4 mg Q4HP PRN IV 01/31/25 20:30 Docusate Sodium 100 mg BIDPRN PRN PO 01/31/25 20:30 Nitroglycerin 0.4 mg Q5MINP PRN SL 01/31/25 20:30 Morphine Sulfate 2 mg Q30M PRN IV 01/31/25 20:30 objective GENERAL: Alert and oriented x 3. No acute distress. EYES: PERRL, EOMI. Anicteric. HENT: Moist mucous membranes. LUNGS: Clear to auscultation bilaterally. CARDIOVASCULAR: Regular rate and rhythm. ABDOMEN: Soft, nontender and nondistended. EXTREMITIES: No edema. NEUROLOGIC: No focal neurological deficits. SKIN: Warm, dry. laboratory and microbiology Laboratory Tests 02/01/25 14:05 02/01/25 09:37 Test 02/01/25 14:05 Range/Units Serum Glucose 256 H 74-106 mg/dL Problem List NSTEMI (non-ST elevated myocardial infarction). Chest pain. RENARD. Diabetes mellitus with hyperglycemia. Generalized weakness. Assessment/Plan Continued all current supportive medical care. Morphine and [place] for pain management. Amlodipine, Coreg. Heparin drip per pharmacy. Nitro SL. Additional plan as per the hospital course. Plan discussed with: Patient GATITO CRONIN MD Feb 01, 2025 15:11
[2025-02-02] VITALS (8 sets, daily range): BP systolic 108–125; BP diastolic 73–85; PULSE 56–73; RESP 14–18; TEMP 97.4–98.4; O2SAT 96–98
[2025-02-02 07:35] LABS: INR 1.03 (0.9-1.15); Partial Thromboplastin Time 52.2 SEC (24.5-34.5); Prothrombin Time 10.9 sec (9.3-11.8)
[2025-02-02 07:36] LABS: Hematocrit 39.6 % (41.0-53.0); Hemoglobin 13.6 g/dL (13.5-17.5); Mean Corpuscular Hemoglobin 30.4 pg (28.0-32.0); Mean Corpuscular Volume 88.7 fL (80.0-100.0); Nucleated Red Blood Cells % 0.1 %
--- NOTE | 2025-02-02 08:18 | CONS ---
Pharmacy Clinical Information: HEPARIN DRIP, ACS PROTOCOL @0518 APTT 52.2- NO BOLUS, NO CHANGE 4 CONSECUTIVE APTT THERAPEUTIC => APTT EVERY 24 HRS NEXT APTT DRAW SCHEDULED @0500 PER RX PROTOCOL CONFIRMED AND READ BACK WITH LIAN AWAD [facility] RESIDENT Feb 02, 2025 08:18
--- NOTE | 2025-02-02 11:57 | DVHPN2 ---
Subjective The patient seen and examined at beside. Still have chest pain Reviewed: Care Plan, H&P, Labs, Medications, Previous Orders, Radiology Changes from previous H/P or p: No Changes Eyes: No Pain, No Vision change, No Conjunctivae inflammation, No Eyelid inflammation, No Other, No Redness ENT: No Ear pain, No Ear discharge, No Nose pain, No Nose discharge, No Nose congestion, No Mouth pain, No Mouth swelling, No Throat pain, No Throat swelling, No Other Cardiovascular: Chest Pain; No Palpitations, No Orthopnea, No Paroxysmal Noc. Dyspnea, No Edema, No Lt Headedness, No Other Respiratory: No Cough, No Dry, No Shortness of breath, No SOB with excertion, No Wheezing, No Hemoptysis, No Pleuritic Pain, No Sputum, No Other Gastrointestinal: Nausea; No Vomiting, No Abdominal Pain, No Diarrhea, No Constipation, No Melena, No Hematochezia, No Other Genitourinary: No Dysuria, No Frequency, No Incontinence, No Hematuria, No Retention, No Other Musculoskeletal: No other, No neck pain, No shoulder pain, No arm pain, No back pain, No hand pain, No leg pain, No foot pain Skin: No Rash, No Lesions, No Jaundice, No Bruising, No Other Objective Vitals Vital Signs Date Time Temp Pulse Resp B/P (MAP) Pulse Ox O2 Delivery O2 Flow Rate FiO2 02/02/25 10:08 61 126/80 02/02/25 09:15 97.4 14 98 97.4 02/02/25 08:00 Room Air* 0 21 Intake/Output Intake and Output 02/02/25 07:00 Intake Total 1240 ml Balance 1240 ml Intake Oral 1240 ml # Voids 4 # Bowel Movements 1 General Appearance: Alert, Oriented X3 HEENT: Atraumatic, PERRLA, EOMI, Mucous membr. moist/pink Lungs: Clear to auscultation, Normal air movement Cardiovascular: Regular rate, Normal S1, Normal S2, No murmurs, Gallops, Rubs Abdomen: Normal bowel sounds Neuro: Cranial nerves 3-12 NL Psych/Mental Status: Mental status NL Medications Current Medications Medications Dose Ordered Sig/Alysa Route Start Time Stop Time Status Last Admin Dose Admin Heparin Sodium/ Dextrose 250 ml @ 10 mls/hr Q24H IV 01/31/25 13:45 02/01/25 14:36 10 MLS/HR Morphine Sulfate 4 mg [id number] PRN IV 01/31/25 17:15 Ondansetron HCl 4 mg Q4HPRN PRN IV 01/31/25 17:15 Nitroglycerin 0.4 mg ONCE PRN SL 01/31/25 17:15 Amlodipine Besylate 5 mg DAILY PO 02/01/25 10:00 02/02/25 10:08 5 MG Carvedilol 12.5 mg Q12HR PO 01/31/25 22:00 02/02/25 10:08 12.5 MG Levothyroxine Sodium 88 mcg QAM@0600 PO 02/01/25 06:00 02/02/25 05:14 88 MCG Diagnostic Test (Pha) 1 strip IQ4HR 02/01/25 00:00 02/02/25 08:13 1 STRIP Insulin Human Regular IQ4HR SC 02/01/25 00:00 02/01/25 20:01 12 UNITS Dextrose 50 ml UD PRN IV 01/31/25 20:30 Sodium Chloride 10 ml Q8HR IV 01/31/25 22:00 02/02/25 05:19 10 ML Acetaminophen/ Hydrocodone Bitart 1 tab Q4HP PRN PO 01/31/25 20:30 Ondansetron HCl 4 mg Q4HP PRN IV 01/31/25 20:30 Docusate Sodium 100 mg BIDPRN PRN PO 01/31/25 20:30 Nitroglycerin 0.4 mg Q5MINP PRN SL 01/31/25 20:30 Morphine Sulfate 2 mg Q30M PRN IV 01/31/25 20:30 Laboratory Results Laboratory Tests 02/01/25 14:05 02/02/25 05:18 Chemistry Test 02/01/25 14:05 Albumin 4.0 g/dL (3.2-4.8) Calcium Level 9.5 mg/dL (8.7-10.4) Total Protein 6.8 g/dL (5.7-8.2) Coagulation Test 02/01/25 14:05 02/02/25 05:18 Prothrombin Time 10.9 sec (9.3-11.8) 10.9 sec (9.3-11.8) Prothrombin Time INR 1.03 (0.9-1.15) 1.03 (0.9-1.15) Activated Partial Thromboplast Time 50.4 SEC (24.5-34.5) H 52.2 SEC (24.5-34.5) H LFT Test 02/01/25 14:05 Alanine Aminotransferase (ALT) 46 U/L (7-40) H Alkaline Phosphatase 40 U/L (46-116) L Aspartate Amino Transferase (AST) 45 U/L (13-40) H Total Bilirubin 0.7 mg/dL (0.2-1.0) Urinalysis Test 01/31/25 16:10 Urine Color Light-yellow (Yellow) Urine Clarity Clear (Clear) Urine pH 5.5 (5.0-9.0) Urine Specific [place] 1.012 (1.001-1.035) Urine Protein Negative (Negative) Urine Ketones Negative (Negative) Urine Blood Negative /uL (Negative) Urine Nitrite Negative (Negative) Urine Bilirubin Negative (Negative) Urine Urobilinogen Normal mg/dL (Negative) Urine Leukocyte Esterase Negative /uL (Negative) Urine RBC 1 /hpf (0 - 3) Urine Microscopic WBC < 1 /HPF (0-3) Urine Squamous Epithelial Cells None seen /hpf (<5) Urine Bacteria None seen /hpf (None Seen) Urine Glucose 4+ mg/dL (Normal) H Labs and/or images reviewed: Labs reviewed by me Assessment/Plan Assessment/Plan NSTEMI (non-ST elevated myocardial infarction) Acute chest pain Acute renal injury Diabetes mellitus with hyperglycemia Generalized weakness Continue heparin drip Trend troponins We will follow up Echo Continuing sliding scale insulin Waiting per city planning engineer regarding to his non ST-elevation [place] This medical document was created using an electronic medical record system with [email or web address] direct computerized dictation system. Although this document has been carefully reviewed, there may still be some phonetic and typographical errors. These areas are purely typographical due to imperfections of the software programs, and do not reflect any compromise in the patient's medical care. Plan discussed with: Patient Date of Service: Feb 02, 2025 Billing Provider: TAYLOR MCCORD MD Common Visit Codes: [id number] INP/OBS CARE(HIGH) TAYLOR MCCORD MD Feb 02, 2025 11:57
[2025-02-02] MEDS ORDERED: [UNRECOGNIZED DRUG - CODE] PO (14:54)
--- NOTE | 2025-02-02 23:48 | DVHPN2 ---
Progress Note - Dictate Date Seen: Feb 02, 2025 Medical Necessity Reason Pt with a Central, PICC or Fol: No Subjective Patient was seen and evaluated in follow up. Patient is complaining of chest pain. Patient is receiving heparin drip. Patients BS are fluctuating. Telemetry reviewed. vital signs Vital Sign Date Time Temp Pulse Resp B/P (MAP) Pulse Ox O2 Delivery O2 Flow Rate FiO2 02/02/25 21:36 63 118/78 02/02/25 21:00 97.5 18 96 97.5 02/02/25 08:00 Room Air* 0 21 Total Intake and Output 02/01/25 02/01/25 02/02/25 15:00 23:00 07:00 Intake Total 480 ml 360 ml 400 ml Balance 480 ml 360 ml 400 ml medications Current Medications Medications Dose Ordered Sig/Alysa Route Start Time Stop Time Status Last Admin Dose Admin Heparin Sodium/ Dextrose 250 ml @ 10 mls/hr Q24H IV 01/31/25 13:45 02/02/25 15:37 10 MLS/HR Morphine Sulfate 4 mg [id number] PRN IV 01/31/25 17:15 Ondansetron HCl 4 mg Q4HPRN PRN IV 01/31/25 17:15 Nitroglycerin 0.4 mg ONCE PRN SL 01/31/25 17:15 Amlodipine Besylate 5 mg DAILY PO 02/01/25 10:00 02/02/25 10:08 5 MG Carvedilol 12.5 mg Q12HR PO 01/31/25 22:00 02/02/25 21:36 12.5 MG Levothyroxine Sodium 88 mcg QAM@0600 PO 02/01/25 06:00 02/02/25 05:14 88 MCG Diagnostic Test (Pha) 1 strip IQ4HR 02/01/25 00:00 02/02/25 20:00 1 STRIP Insulin Human Regular IQ4HR SC 02/01/25 00:00 02/02/25 20:27 3 UNITS Dextrose 50 ml UD PRN IV 01/31/25 20:30 Sodium Chloride 10 ml Q8HR IV 01/31/25 22:00 02/02/25 21:36 10 ML Acetaminophen/ Hydrocodone Bitart 1 tab Q4HP PRN PO 01/31/25 20:30 Ondansetron HCl 4 mg Q4HP PRN IV 01/31/25 20:30 Docusate Sodium 100 mg BIDPRN PRN PO 01/31/25 20:30 Nitroglycerin 0.4 mg Q5MINP PRN SL 01/31/25 20:30 Morphine Sulfate 2 mg Q30M PRN IV 01/31/25 20:30 objective GENERAL: Alert and oriented x 3. No acute distress. EYES: PERRL, EOMI. Anicteric. HENT: Moist mucous membranes. LUNGS: Clear to auscultation bilaterally. CARDIOVASCULAR: Regular rate and rhythm. ABDOMEN: Soft, nontender and nondistended. EXTREMITIES: No edema. NEUROLOGIC: No focal neurological deficits. SKIN: Warm, dry. laboratory and microbiology Laboratory Tests 02/02/25 05:18 02/01/25 14:05 Test 02/01/25 14:05 Range/Units Serum Glucose 256 H 74-106 mg/dL Problem List NSTEMI (non-ST elevated myocardial infarction). Chest pain. RENARD. Diabetes mellitus with hyperglycemia. Generalized weakness. Assessment/Plan Continued all current supportive medical care. Morphine and [place] for pain management. Amlodipine, Coreg. Heparin drip per pharmacy. Nitro SL. Additional plan as per the hospital course. Plan discussed with: Patient GATITO CRONIN MD Feb 02, 2025 23:48
[2025-02-03] VITALS (8 sets, daily range): BP systolic 111–145; BP diastolic 67–94; PULSE 57–76; RESP 17–19; TEMP 97.5–98.7; O2SAT 95–100
[2025-02-03 07:24] LABS: Hematocrit 38.5 % (41.0-53.0); Hemoglobin 13.1 g/dL (13.5-17.5); Mean Corpuscular Hemoglobin 30.1 pg (28.0-32.0); Mean Corpuscular Volume 88.4 fL (80.0-100.0); Nucleated Red Blood Cells % 0.1 %
[2025-02-03 07:40] LABS: INR 0.93 (0.9-1.15); Prothrombin Time 9.9 sec (9.3-11.8)
[2025-02-03 07:59] LABS: Partial Thromboplastin Time 79.8 SEC (24.5-34.5)
[2025-02-03] MEDS: HEPARIN DRIP/D5W 100UNITS/ML 250 ML IV SCH ×2 (09:36→17:44)
--- NOTE | 2025-02-03 11:43 | CONS ---
Pharmacy Clinical Information: HEPARIN DRIP PER RX PROTOCOL SPOKE TO BABAK ORTIZ REGARDING TO HEPARIN DRIP RATE CHANGE CURRENT DOSE = 1000 UNITS/HR CURRENT aPTT = 79.8 ON 02/03/2025 AT 06:10 BOLUS: NO DECREASE HEPARIN DRIP RATE (NEW DOSE): 800 UNITS/HR DATE AND TIME NEW DOSE STARTED: 02/03/2025 AT 09:36 NEXT aPTT: 02/03/2025 AT 15:30 BABAK ORTIZ READ BACK NEW HEPARIN DRIP RATE 800 UNITS/HR FARSHAD Meehan Feb 03, 2025 11:43
[2025-02-03] MEDS ORDERED: LEVO-177 PO (12:12)
[2025-02-03] MEDS ORDERED: CARV-216 PO (12:12)
--- NOTE | 2025-02-03 12:14 | DVHDS2 ---
Discharge Summary Date of Admission Jan 31, 2025 at 20:29 Date of Discharge: Feb 03, 2025 Labs/Diagnostic Data: Laboratory Results Test 02/03/25 11:47 02/03/25 06:10 02/01/25 14:05 02/01/25 09:37 POC Glucose 248 mg/dl (70-106) White Blood Count 8.0 10^3/uL (4.4-10.8) Red Blood Count 4.35 10^6/uL (4.5-5.90) Hemoglobin 13.1 g/dL (13.5-17.5) Hematocrit 38.5 % (41.0-53.0) Mean Corpuscular Volume 88.4 fL (80.0-100.0) Mean Corpuscular Hemoglobin 30.1 pg (28.0-32.0) Mean Corpuscular Hemoglobin Concent 34.1 g/dL (32.0-36.0) Red Cell Distribution Width 13.5 % (11.8-14.3) Platelet Count 192 10^3/uL (140-450) Mean Platelet Volume 11.2 fL (6.9-10.8) Neutrophils (%) (Auto) 56.4 % (37.0-80.0) Lymphocytes (%) (Auto) 32.0 % (10.0-50.0) Monocytes (%) (Auto) 7.6 % (0.0-12.0) Eosinophils (%) (Auto) 3.6 % (0.0-7.0) Basophils (%) (Auto) 0.4 % (0.0-2.0) Neutrophils # (Auto) 4.5 10 ^3/uL (1.6-8.6) Lymphocytes # (Auto) 2.6 10 ^3/uL (0.4-5.4) Monocytes # (Auto) 0.6 10 ^3/uL (0-1.3) Eosinophils # (Auto) 0.3 10 ^3/uL (0-0.8) Basophils # (Auto) 0 10 ^3/uL (0-0.2) Nucleated Red Blood Cells 0.1 % Prothrombin Time 9.9 sec (9.3-11.8) Prothrombin Time INR 0.93 (0.9-1.15) Activated Partial Thromboplast Time 79.8 SEC (24.5-34.5) Sodium Level 135 mmol/L (136-145) Potassium Level 4.2 mmol/L (3.5-5.1) Chloride Level 99 mmol/L (98-107) Carbon Dioxide Level 25 mmol/L (20-31) Anion Gap 11 (5-15) Blood Urea Nitrogen 17 mg/dL (9-23) Creatinine 1.23 mg/dL (0.700-1.30) Glomerular Filtration Rate Calc 66 mL/min (>90) BUN/Creatinine Ratio 13.8 (10.0-20.0) Serum Glucose 256 mg/dL (74-106) Calcium Level 9.5 mg/dL (8.7-10.4) Total Bilirubin 0.7 mg/dL (0.2-1.0) Aspartate Amino Transferase (AST) 45 U/L (13-40) Alanine Aminotransferase (ALT) 46 U/L (7-40) Alkaline Phosphatase 40 U/L (46-116) Total Protein 6.8 g/dL (5.7-8.2) Albumin 4.0 g/dL (3.2-4.8) Thyroid Stimulating Hormone (TSH) 4.07 uIU/mL (0.55-4.78) Test 01/31/25 16:10 01/31/25 15:11 Urine Color Light-yellow (Yellow) Urine Clarity Clear (Clear) Urine pH 5.5 (5.0-9.0) Urine Specific [place] 1.012 (1.001-1.035) Urine Protein Negative (Negative) Urine Ketones Negative (Negative) Urine Blood Negative /uL (Negative) Urine Nitrite Negative (Negative) Urine Bilirubin Negative (Negative) Urine Urobilinogen Normal mg/dL (Negative) Urine Leukocyte Esterase Negative /uL (Negative) Urine RBC 1 /hpf (0 - 3) Urine Microscopic WBC < 1 /HPF (0-3) Urine Squamous Epithelial Cells None seen /hpf (<5) Urine Bacteria None seen /hpf (None Seen) Urine Glucose 4+ mg/dL (Normal) Troponin I High Sensitivity 3748 ng/L (</=54) Other Laboratory Tests 02/03/25 06:10 02/01/25 14:05 Final Diagnosis/Problems List chest pain Discharge Disposition: Home Discharge Instruct/Medications Diet: Cardiac 2g Na,low cholest Activity: No Restrictions, As Tolerated Follow Up/Referral: pcp 1-2 weeks Medications: see med list Scheduled Amlodipine Besylate (Amlodipine Besylate), 1 TAB PO DAILY, (Reported) Aspirin (Aspir-Low), 1 TAB PO DAILY, (Reported) Carvedilol (Coreg), 12.5 MG PO Q12HR Glipizide (Glipizide), 2 TAB PO BID, (Reported) Hydrochlorothiazide (Hydrochlorothiazide), 1 TAB PO DAILY, (Reported) Insulin Glargine-Yfgn (Insulin Glargine), 10 UNIT SC QPM, (Reported) Levothyroxine Sodium (Levothyroxine Sodium), 1 TAB PO DAILY, (Reported) Levothyroxine Sodium (Levothyroxine Sodium), 88 MCG PO QAM@0600 Lisinopril (Lisinopril), 1 TAB PO BID, (Reported) Metformin Hydrochloride (Metformin Hydrochloride E), 1 TAB PO BID, (Reported) Discontinued Medications Levothyroxine Sodium (Levothyroxine Sodium), 75 MCG PO QAM, (Reported) Discontinued Reason: Prescription changed Metformin Hydrochloride (Metformin Hcl), 750 MG PO IBID, (Reported) Discontinued Reason: Prescription changed Discharge Statement: "Patient was advised to return to the ER or call 911 if any headaches, dizziness, shortness of breath, chest pain, abdominal pain, bleeding, fevers, or worsening of medical condition. Patient was counseled about treatment plan, medications, possible side effects, patientverbalized understanding. All questions were answered to the best of my ability. This discharge took greater then 30 minutes in planning, reviewing documentation, counseling the patient, and discussing with other team members." ASSESSMENT ASSESSMENT Assessment chest pain TAYLOR MCCORD MD Feb 03, 2025 12:14
--- NOTE | 2025-02-03 16:19 | DVHPN2 ---
Subjective The patient seen and examined at beside. Still have chest pain Reviewed: Care Plan, H&P, Labs, Medications, Previous Orders, Radiology Changes from previous H/P or p: No Changes Eyes: No Pain, No Vision change, No Conjunctivae inflammation, No Eyelid inflammation, No Other, No Redness ENT: No Ear pain, No Ear discharge, No Nose pain, No Nose discharge, No Nose congestion, No Mouth pain, No Mouth swelling, No Throat pain, No Throat swelling, No Other Cardiovascular: Chest Pain; No Palpitations, No Orthopnea, No Paroxysmal Noc. Dyspnea, No Edema, No Lt Headedness, No Other Respiratory: No Cough, No Dry, No Shortness of breath, No SOB with excertion, No Wheezing, No Hemoptysis, No Pleuritic Pain, No Sputum, No Other Gastrointestinal: Nausea; No Vomiting, No Abdominal Pain, No Diarrhea, No Constipation, No Melena, No Hematochezia, No Other Genitourinary: No Dysuria, No Frequency, No Incontinence, No Hematuria, No Retention, No Other Musculoskeletal: No other, No neck pain, No shoulder pain, No arm pain, No back pain, No hand pain, No leg pain, No foot pain Skin: No Rash, No Lesions, No Jaundice, No Bruising, No Other Objective Vitals Vital Signs Date Time Temp Pulse Resp B/P (MAP) Pulse Ox O2 Delivery O2 Flow Rate FiO2 02/03/25 13:00 98.7 63 17 111/81 (91) 96 98.7 02/03/25 08:00 Room Air* 0 21 Intake/Output Intake and Output 02/03/25 07:00 Intake Total 3636 ml Balance 3636 ml Intake Oral 3636 ml # Voids 13 # Bowel Movements 1 General Appearance: Alert, Oriented X3 HEENT: Atraumatic, PERRLA, EOMI, Mucous membr. moist/pink Lungs: Clear to auscultation, Normal air movement Cardiovascular: Regular rate, Normal S1, Normal S2, No murmurs, Gallops, Rubs Abdomen: Normal bowel sounds Neuro: Cranial nerves 3-12 NL Psych/Mental Status: Mental status NL Medications Current Medications Medications Dose Ordered Sig/Alysa Route Start Time Stop Time Status Last Admin Dose Admin Morphine Sulfate 4 mg [id number] PRN IV 01/31/25 17:15 Cancel Ondansetron HCl 4 mg Q4HPRN PRN IV 01/31/25 17:15 Cancel Nitroglycerin 0.4 mg ONCE PRN SL 01/31/25 17:15 Cancel Amlodipine Besylate 5 mg DAILY PO 02/01/25 10:00 02/03/25 09:32 5 MG Carvedilol 12.5 mg Q12HR PO 01/31/25 22:00 02/03/25 09:34 12.5 MG Levothyroxine Sodium 88 mcg QAM@0600 PO 02/01/25 06:00 02/03/25 05:44 88 MCG Diagnostic Test (Pha) 1 strip IQ4HR 02/01/25 00:00 02/03/25 12:00 1 STRIP Insulin Human Regular IQ4HR SC 02/01/25 00:00 02/03/25 11:58 6 UNITS Dextrose 50 ml UD PRN IV 01/31/25 20:30 Sodium Chloride 10 ml Q8HR IV 01/31/25 22:00 02/03/25 14:12 10 ML Acetaminophen/ Hydrocodone Bitart 1 tab Q4HP PRN PO 01/31/25 20:30 Ondansetron HCl 4 mg Q4HP PRN IV 01/31/25 20:30 Docusate Sodium 100 mg BIDPRN PRN PO 01/31/25 20:30 Nitroglycerin 0.4 mg Q5MINP PRN SL 01/31/25 20:30 Morphine Sulfate 2 mg Q30M PRN IV 01/31/25 20:30 Heparin Sodium/ Dextrose 250 ml @ 8 mls/hr Q24H IV 02/03/25 09:30 02/03/25 09:36 8 MLS/HR Laboratory Results Laboratory Tests 02/01/25 14:05 02/03/25 06:10 Coagulation Test 02/03/25 06:10 02/03/25 15:24 Prothrombin Time 9.9 sec (9.3-11.8) Pending Prothrombin Time INR 0.93 (0.9-1.15) Pending Activated Partial Thromboplast Time 79.8 SEC (24.5-34.5) *H Pending Urinalysis Test 01/31/25 16:10 Urine Color Light-yellow (Yellow) Urine Clarity Clear (Clear) Urine pH 5.5 (5.0-9.0) Urine Specific [place] 1.012 (1.001-1.035) Urine Protein Negative (Negative) Urine Ketones Negative (Negative) Urine Blood Negative /uL (Negative) Urine Nitrite Negative (Negative) Urine Bilirubin Negative (Negative) Urine Urobilinogen Normal mg/dL (Negative) Urine Leukocyte Esterase Negative /uL (Negative) Urine RBC 1 /hpf (0 - 3) Urine Microscopic WBC < 1 /HPF (0-3) Urine Squamous Epithelial Cells None seen /hpf (<5) Urine Bacteria None seen /hpf (None Seen) Urine Glucose 4+ mg/dL (Normal) H Labs and/or images reviewed: Labs reviewed by me Assessment/Plan Assessment/Plan NSTEMI (non-ST elevated myocardial infarction) Acute chest pain Acute renal injury Diabetes mellitus with hyperglycemia Generalized weakness Continue heparin drip Trend troponins We will follow up Echo Continuing sliding scale insulin DW dr Reagan Tipton, left heart cath in am. This medical document was created using an electronic medical record system with M*M [employer] direct computerized dictation system. Although this document has been carefully reviewed, there may still be some phonetic and typographical errors. These areas are purely typographical due to imperfections of the software programs, and do not reflect any compromise in the patient's medical care. Plan discussed with: Patient My Orders Orders - TAYLOR MCCORD MD Procedure Category Date Status Time Discharge DISCHARGE 02/03/25 Transmitted 12:12 Date of Service: Feb 03, 2025 Billing Provider: TAYLOR MCCORD MD Common Visit Codes: [id number] INP/OBS CARE(HIGH) TAYLOR MCCORD MD Feb 03, 2025 16:19
[2025-02-03 16:29] LABS: INR 1.04 (0.9-1.15); Partial Thromboplastin Time 41.7 SEC (24.5-34.5); Prothrombin Time 11.0 sec (9.3-11.8)
--- NOTE | 2025-02-03 18:21 | CONS ---
Pharmacy Clinical Information: HEPARIN PER PHARMACY SPOKE TO BABAK Moran REGARDING heparin dose change Current dose: 800 units/hr CURRENT aPTT: 41.7 on 02/03/2025 at 15:24 BOLUS: no Increase heparin drip rate (new dose): 1000 units/hr Date and time new dose started: 02/03/2025 at 17:44 Next aPTT: 02/04/2025 at 00:00 BABAK Moran READ BACK NEW DOSE: 1000 UNITS/HR FARSHAD Meehan Feb 03, 2025 18:21
--- NOTE | 2025-02-03 23:36 | DVHPN2 ---
Progress Note - Dictate Date Seen: Feb 03, 2025 Medical Necessity Reason Pt with a Central, PICC or Fol: No Subjective Patient was seen and evaluated in follow up. Patient is complaining of chest pain. Patient is maintained on heparin drip. GLUC 248. Telemetry reviewed. vital signs Vital Sign Date Time Temp Pulse Resp B/P (MAP) Pulse Ox O2 Delivery O2 Flow Rate FiO2 02/03/25 09:34 62 123/85 02/03/25 08:52 98.3 17 99 98.3 02/03/25 08:00 Room Air* 0 21 Total Intake and Output 02/02/25 02/02/25 02/03/25 15:00 23:00 07:00 Intake Total 1236 ml 1600 ml 800 ml Balance 1236 ml 1600 ml 800 ml medications Current Medications Medications Dose Ordered Sig/Alysa Route Start Time Stop Time Status Last Admin Dose Admin Morphine Sulfate 4 mg [id number] PRN IV 01/31/25 17:15 Cancel Ondansetron HCl 4 mg Q4HPRN PRN IV 01/31/25 17:15 Cancel Nitroglycerin 0.4 mg ONCE PRN SL 01/31/25 17:15 Cancel Amlodipine Besylate 5 mg DAILY PO 02/01/25 10:00 02/03/25 09:32 5 MG Carvedilol 12.5 mg Q12HR PO 01/31/25 22:00 02/03/25 09:34 12.5 MG Levothyroxine Sodium 88 mcg QAM@0600 PO 02/01/25 06:00 02/03/25 05:44 88 MCG Diagnostic Test (Pha) 1 strip IQ4HR 02/01/25 00:00 02/03/25 12:00 1 STRIP Insulin Human Regular IQ4HR SC 02/01/25 00:00 02/03/25 11:58 6 UNITS Dextrose 50 ml UD PRN IV 01/31/25 20:30 Sodium Chloride 10 ml Q8HR IV 01/31/25 22:00 02/03/25 05:44 10 ML Acetaminophen/ Hydrocodone Bitart 1 tab Q4HP PRN PO 01/31/25 20:30 Ondansetron HCl 4 mg Q4HP PRN IV 01/31/25 20:30 Docusate Sodium 100 mg BIDPRN PRN PO 01/31/25 20:30 Nitroglycerin 0.4 mg Q5MINP PRN SL 01/31/25 20:30 Morphine Sulfate 2 mg Q30M PRN IV 01/31/25 20:30 Heparin Sodium/ Dextrose 250 ml @ 8 mls/hr Q24H IV 02/03/25 09:30 02/03/25 09:36 8 MLS/HR objective GENERAL: Alert and oriented x 3. No acute distress. EYES: PERRL, EOMI. Anicteric. HENT: Moist mucous membranes. LUNGS: Clear to auscultation bilaterally. CARDIOVASCULAR: Regular rate and rhythm. ABDOMEN: Soft, nontender and nondistended. EXTREMITIES: No edema. NEUROLOGIC: No focal neurological deficits. SKIN: Warm, dry. laboratory and microbiology Laboratory Tests 02/03/25 06:10 02/01/25 14:05 Test 02/01/25 14:05 Range/Units Serum Glucose 256 H 74-106 mg/dL Problem List NSTEMI (non-ST elevated myocardial infarction). Chest pain. RENARD. Diabetes mellitus with hyperglycemia. Generalized weakness. Assessment/Plan Continued all current supportive medical care. Morphine and [place] for pain management. Amlodipine, Coreg. Heparin drip per pharmacy. Nitro SL. Additional plan as per the hospital course. Plan discussed with: Patient GATITO CRONIN MD Feb 03, 2025 13:49
[2025-02-04] VITALS (11 sets, daily range): BP systolic 112–132; BP diastolic 63–81; PULSE 56–108; RESP 16–20; TEMP 97.9–98.7; O2SAT 95–100
[2025-02-04 00:44] LABS: INR 1.05 (0.9-1.15); Partial Thromboplastin Time 54.4 SEC (24.5-34.5); Prothrombin Time 11.1 sec (9.3-11.8)
[2025-02-04 08:58] LABS: INR 1.07 (0.9-1.15); Partial Thromboplastin Time 47.6 SEC (24.5-34.5); Prothrombin Time 11.3 sec (9.3-11.8)
[2025-02-04] MEDS: IODIXANOL 320MG/ML 100ML BTL IV ONE (09:27)
[2025-02-04] MEDS: VERAPAMIL 2.5MG/ML INJ 2ML VIAL IV ONE (09:29)
[2025-02-04] MEDS: ANGIOMAX 250 MG VIAL IV ONE ×2 (09:29→10:31)
[2025-02-04] MEDS: HEPARIN SODIUM (PORCINE) 5000 UNITS/ML 1ML VIAL ONE (09:29)
[2025-02-04] MEDS: SODIUM CHL 0.9% 50 ML ONE ×2 (09:30→10:31)
[2025-02-04] MEDS: MIDAZOLAM HCL 2MG/2ML 2ml VIAL (1mg/ml) ONE (09:30)
[2025-02-04] MEDS: LIDOCAINE 2%HCL (LOCAL ANESTH.) INJ 20ML MDV ONE (09:30)
[2025-02-04] MEDS: fentaNYL CITRATE 100 MCG/2 ML VL ONE (09:30)
[2025-02-04 09:42] LABS: Hematocrit 43.2 % (41.0-53.0); Hemoglobin 14.4 g/dL (13.5-17.5); Mean Corpuscular Hemoglobin 30.2 pg (28.0-32.0); Mean Corpuscular Volume 90.6 fL (80.0-100.0); Nucleated Red Blood Cells % 0.1 %
--- NOTE | 2025-02-04 09:44 | CONS ---
Pharmacy Clinical Information: HEPARIN DRIP, ACS PROTOCOL @0817 APTT = 47.6 - NO BOLUS, INCREASE RATE BY 200 UNITS (1000 UNITS/ HR --> 1200 UNITS/HR) PER RX PROTOCOL NEXT APTT DRAW SCHEDULED FOR 1600 CONFIRMED AND READ BACK WITH RELL [facility] RESIDENT Feb 04, 2025 09:44
[2025-02-04] MEDS ORDERED: HEPARIN DRIP/D5W 100UNITS/ML 250 ML IV SCH (09:45)
[2025-02-04] MEDS: EPTIFIBATIDE INJ (2MG/ML) 10ML VIAL IV ONE (10:10)
[2025-02-04] MEDS: CLOPIDOGREL BISULFATE 75 MG TAB ONE (11:07)
[2025-02-04] MEDS: METOPROLOL TARTRATE 25 MG TAB PO ONE (11:15)
--- NOTE | 2025-02-04 11:51 | DVHOP ---
DATE OF SURGERY: 02/04/2025 TECHNIQUE PERFORMED: * Ultrasound of the right radial artery * Management of conscious sedation. * Attempt for left heart cath and LV gram. * [place] selective left and right coronary angiography. ASSISTANTS: Assisted by Vince Orosco Thomas, Joshua, and Juliet. INDICATIONS: Acute myocardial infarction. DESCRIPTION OF PROCEDURE: The procedure risks and benefits discussed. Counseling done. Questions answered. Information given. Brought to the labor supervisor for the procedure. The right radial artery thoroughly cleaned with soap and Betadine. Lidocaine was given. A 6-[place] arterial line was placed. The patient got 100 mcg of nitroglycerin, 2.5 mg of verapamil, 2000 units of heparin and we have put TIG catheter 5-[place]amo[place] 4.0 and the left coronary angiography was done. With the help of similar catheter, right coronary angiography done. With the help of similar catheter, I attempted to perform the left heart catheterization and LV gram, but this catheter did not travel to left ventricle. The procedure has been completed. IMPRESSION: * Normal left main. * Left anterior descending artery immediately after its origin, there is underlying 99.9% narrowing and ROMAIN grade 2 flow has been noted. * The diagonal artery also 99%. * The circumflex obtuse marginal artery is a very large dominant artery. * The distal region of the circumflex artery has a 90% blockage which appears like a posterior descending artery arising from left circumflex artery. * Obtuse marginal artery is normal. * The right coronary artery is nondominant artery and is normal. PLAN OF ACTION: Advise to undergo intervention of the left anterior descending artery. Ratna Tipton MD MP/NIELS/YOKO TID: [id number] RECEIPT: [id number] JEROD
--- NOTE | 2025-02-04 12:04 | DVHPN2 ---
Subjective The patient seen and examined at beside. Still have chest pain. Waiting for cardiac cath today. Reviewed: Care Plan, H&P, Labs, Medications, Previous Orders, Radiology Changes from previous H/P or p: No Changes Eyes: No Pain, No Vision change, No Conjunctivae inflammation, No Eyelid inflammation, No Other, No Redness ENT: No Ear pain, No Ear discharge, No Nose pain, No Nose discharge, No Nose congestion, No Mouth pain, No Mouth swelling, No Throat pain, No Throat swelling, No Other Cardiovascular: Chest Pain; No Palpitations, No Orthopnea, No Paroxysmal Noc. Dyspnea, No Edema, No Lt Headedness, No Other Respiratory: No Cough, No Dry, No Shortness of breath, No SOB with excertion, No Wheezing, No Hemoptysis, No Pleuritic Pain, No Sputum, No Other Gastrointestinal: Nausea; No Vomiting, No Abdominal Pain, No Diarrhea, No Constipation, No Melena, No Hematochezia, No Other Genitourinary: No Dysuria, No Frequency, No Incontinence, No Hematuria, No Retention, No Other Musculoskeletal: No other, No neck pain, No shoulder pain, No arm pain, No back pain, No hand pain, No leg pain, No foot pain Skin: No Rash, No Lesions, No Jaundice, No Bruising, No Other Objective Vitals Vital Signs Date Time Temp Pulse Resp B/P (MAP) Pulse Ox O2 Delivery O2 Flow Rate FiO2 02/04/25 11:15 68 16 123/75 (91) 96 02/04/25 09:00 98.6 98.6 02/03/25 20:00 Room Air* 0 21 Intake/Output Intake and Output 02/04/25 07:00 Intake Total 1215 ml Balance 1215 ml Intake Oral 1205 ml IV Total 10 ml # Voids 12 # Bowel Movements 1 General Appearance: Alert, Oriented X3 HEENT: Atraumatic, PERRLA, EOMI, Mucous membr. moist/pink Lungs: Clear to auscultation, Normal air movement Cardiovascular: Regular rate, Normal S1, Normal S2, No murmurs, Gallops, Rubs Abdomen: Normal bowel sounds Neuro: Cranial nerves 3-12 NL Psych/Mental Status: Mental status NL Medications Current Medications Medications Dose Ordered Sig/Alysa Route Start Time Stop Time Status Last Admin Dose Admin Morphine Sulfate 4 mg [id number] PRN IV 01/31/25 17:15 Cancel Ondansetron HCl 4 mg Q4HPRN PRN IV 01/31/25 17:15 Cancel Nitroglycerin 0.4 mg ONCE PRN SL 01/31/25 17:15 Cancel Amlodipine Besylate 5 mg DAILY PO 02/01/25 10:00 02/03/25 09:32 5 MG Carvedilol 12.5 mg Q12HR PO 01/31/25 22:00 02/03/25 21:47 12.5 MG Levothyroxine Sodium 88 mcg QAM@0600 PO 02/01/25 06:00 02/03/25 05:44 88 MCG Diagnostic Test (Pha) 1 strip IQ4HR 02/01/25 00:00 02/04/25 08:16 1 STRIP Insulin Human Regular IQ4HR SC 02/01/25 00:00 02/04/25 00:14 6 UNITS Dextrose 50 ml UD PRN IV 01/31/25 20:30 Sodium Chloride 10 ml Q8HR IV 01/31/25 22:00 02/04/25 05:37 10 ML Acetaminophen/ Hydrocodone Bitart 1 tab Q4HP PRN PO 01/31/25 20:30 Ondansetron HCl 4 mg Q4HP PRN IV 01/31/25 20:30 Docusate Sodium 100 mg BIDPRN PRN PO 01/31/25 20:30 Nitroglycerin 0.4 mg Q5MINP PRN SL 01/31/25 20:30 Morphine Sulfate 2 mg Q30M PRN IV 01/31/25 20:30 Heparin Sodium/ Dextrose 250 ml @ 12 mls/hr [id number] IV 02/04/25 09:45 UNV Clopidogrel Bisulfate 75 mg DAILY PO 02/05/25 10:00 Aspirin 81 mg DAILY PO 02/05/25 10:00 Atorvastatin Calcium 80 mg HS PO 02/04/25 22:00 Laboratory Results Laboratory Tests 02/01/25 14:05 02/04/25 08:17 Coagulation Test 02/03/25 15:24 02/04/25 00:16 02/04/25 08:17 Prothrombin Time 11.0 sec (9.3-11.8) 11.1 sec (9.3-11.8) 11.3 sec (9.3-11.8) Prothrombin Time INR 1.04 (0.9-1.15) 1.05 (0.9-1.15) 1.07 (0.9-1.15) Activated Partial Thromboplast Time 41.7 SEC (24.5-34.5) H 54.4 SEC (24.5-34.5) H 47.6 SEC (24.5-34.5) H Urinalysis Test 01/31/25 16:10 Urine Color Light-yellow (Yellow) Urine Clarity Clear (Clear) Urine pH 5.5 (5.0-9.0) Urine Specific [place] 1.012 (1.001-1.035) Urine Protein Negative (Negative) Urine Ketones Negative (Negative) Urine Blood Negative /uL (Negative) Urine Nitrite Negative (Negative) Urine Bilirubin Negative (Negative) Urine Urobilinogen Normal mg/dL (Negative) Urine Leukocyte Esterase Negative /uL (Negative) Urine RBC 1 /hpf (0 - 3) Urine Microscopic WBC < 1 /HPF (0-3) Urine Squamous Epithelial Cells None seen /hpf (<5) Urine Bacteria None seen /hpf (None Seen) Urine Glucose 4+ mg/dL (Normal) H Labs and/or images reviewed: Labs reviewed by me Assessment/Plan Assessment/Plan NSTEMI (non-ST elevated myocardial infarction) Acute chest pain Acute renal injury Diabetes mellitus with hyperglycemia Generalized weakness Continue heparin drip Trend troponins We will follow up Echo Continuing sliding scale insulin Waiting for cardiac cath today. ADDENDUM: Dw Dr Tipton, the patient has99.9% narrowing of the left anterior descending artery with ROMAIN grade 2 flow, with underlying thrombus formation also and the patient's diagonal artery is also narrowed in the range of 99%. Status thrombectomy and also stent placement. Continue ASA, plavix, Metoprolol and statin. This medical document was created using an electronic medical record system with M*[employer] direct computerized dictation system. Although this document has been carefully reviewed, there may still be some phonetic and typographical errors. These areas are purely typographical due to imperfections of the software programs, and do not reflect any compromise in the patient's medical care. Plan discussed with: Patient My Orders Orders - TAYLOR MCCORD MD Procedure Category Date Status Time Discharge DISCHARGE 02/03/25 Transmitted 12:12 Date of Service: Feb 04, 2025 Billing Provider: TAYLOR MCCORD MD Common Visit Codes: [id number] INP/OBS CARE(HIGH) TAYLOR MCCORD MD Feb 04, 2025 12:04
--- NOTE | 2025-02-04 12:57 | DVHOP ---
DATE OF SURGERY: 02/04/2025 TECHNIQUE PERFORMED: * Emergency case. * Ultrasound of right radial artery. * Management of conscious sedation. * Insertion of 6-[place] arterial line in right radial artery. * Left coronary artery angiography. * Mechanical thrombectomy of the left anterior descending artery with 6-[place] catheter. * Balloon angioplasty of the proximal region of the left anterior descending artery with 2.5 x 12 mm length semi-compliant balloon. * The stenting and angioplasty of the proximal region of the left anterior descending artery with 3.0 x 23 mm length Silviano Reynolds drug-eluting stent of [employer] [employer]. * Intra-arterial administration of the Integrilin bolus. * Balloon coronary artery angioplasty of the diagonal artery. COMPLICATIONS: None. ASSISTANTS: Assisted by our staff over here are Vince Orosco, Caesar and Emma. INDICATIONS: The patient has underlying acute heu-DR-ntyvnijvd myocardial infarction and troponin is high. The patient has now found to have 99.9% narrowing of the left anterior descending artery with ROMAIN grade 2 flow, with underlying thrombus formation also and the patient's diagonal artery is also narrowed in the range of 99%. DESCRIPTION OF PROCEDURE: The risks and benefits all have been explained to the patient. In a standard manner, we have given IV Angiomax via arterial line in the right radial artery. We have put a 6-[place] JL3.5 guiding catheter and subsequently we have now put Whisper MS wire, which went smoothly. Subsequently, we had done balloon angioplasty of the proximal region of the left anterior descending artery with 2.5 x 12 mm length semi-compliant balloon. Subsequently, we have noted there is a clot in the proximal region of the left anterior descending artery. We also did a mechanical thrombectomy with the help of the [place] catheter. Subsequently, now we have also put a wire into diagonal and balloon angioplasty was done with 2.0 x 8 mm length balloon, which was not enough, so we put a 2.0 x 15 mm length balloon and balloon angioplasty of the diagonal artery ostium was done. Subsequently, we put a stent 3.0 x 23 mm length [place] Reynolds stent in the proximal region of the left anterior descending artery which has been inserted up to the 17 atmospheres and 19 atmospheres gradually and the stent site was gradually made to 3.25 mm. The stent has been deployed very well. Step up and step down have been also very well since. Procedure completed. There were no complications. The patient did very well. Subsequently, balloon, wire, catheter all have been discontinued after doing the final angiogram. IMPRESSION: Prior to performing the procedure: * The left anterior descending artery immediately after the origin to entire proximal region is narrowed, 99.9%; ROMAIN grade 2 flow, thrombus formation, type C lesion. * Diagonal artery was also narrowed, 99% and ROMAIN grade 3 flow. Post-procedure: * The patient's LAD is 100% widely open. No residual stenosis. No spasm, no dissection, no thrombus. ROMAIN grade 3 flow. * The diagonal artery pre-procedure was 99%, post procedure is 0%. CONCLUSION: Successful procedure. PLAN OF ACTION: Advised for aspirin, Plavix, beta-nga, cholesterol-reducing medicine. The patient already got Integrilin bolus in the dental laboratory supervisor. Outpatient followup and at a later date, the patient will also need angioplasty, stenting of the circumflex artery. Ratna Tipton MD MP/BANDAR/YOKO TID: [id number] RECEIPT: [id number] JEROD
--- NOTE | 2025-02-04 15:50 | DVHPN2 ---
Progress Note - Dictate Date Seen: Feb 04, 2025 Medical Necessity Reason Pt with a Central, PICC or Fol: No Subjective Patient was seen and evaluated in follow up. Patient underwent attempt for left heart cath and LV gram, [place] selective left and right coronary angiography, left coronary artery angiography, mechanical thrombectomy of the left anterior descending artery, balloon angioplasty of the proximal region of the left anterior descending artery, stenting and angioplasty of the proximal region of the left anterior descending artery, intra-arterial administration of the Integrilin bolus and balloon coronary artery angioplasty of the diagonal artery. Advised for aspirin, Plavix, beta-nga, cholesterol-reducing medicine. The patient already got Integrilin bolus in the cath lab radiological technologist. Outpatient followup and at a later date, the patient will also need angioplasty, stenting of the circumflex artery. Telemetry reviewed. vital signs Vital Sign Date Time Temp Pulse Resp B/P (MAP) Pulse Ox O2 Delivery O2 Flow Rate FiO2 02/04/25 12:15 69 18 114/74 (87) 96 02/04/25 09:00 98.6 98.6 02/03/25 20:00 Room Air* 0 21 Total Intake and Output 02/03/25 02/03/25 02/04/25 15:00 23:00 07:00 Intake Total 735 ml 480 ml Balance 735 ml 480 ml medications Current Medications Medications Dose Ordered Sig/Alysa Route Start Time Stop Time Status Last Admin Dose Admin Morphine Sulfate 4 mg [id number] PRN IV 01/31/25 17:15 Cancel Ondansetron HCl 4 mg Q4HPRN PRN IV 01/31/25 17:15 Cancel Nitroglycerin 0.4 mg ONCE PRN SL 01/31/25 17:15 Cancel Amlodipine Besylate 5 mg DAILY PO 02/01/25 10:00 02/03/25 09:32 5 MG Carvedilol 12.5 mg Q12HR PO 01/31/25 22:00 02/03/25 21:47 12.5 MG Levothyroxine Sodium 88 mcg QAM@0600 PO 02/01/25 06:00 02/03/25 05:44 88 MCG Diagnostic Test (Pha) 1 strip IQ4HR 02/01/25 00:00 02/04/25 08:16 1 STRIP Insulin Human Regular IQ4HR SC 02/01/25 00:00 02/04/25 00:14 6 UNITS Dextrose 50 ml UD PRN IV 01/31/25 20:30 Sodium Chloride 10 ml Q8HR IV 01/31/25 22:00 02/04/25 05:37 10 ML Acetaminophen/ Hydrocodone Bitart 1 tab Q4HP PRN PO 01/31/25 20:30 Ondansetron HCl 4 mg Q4HP PRN IV 01/31/25 20:30 Docusate Sodium 100 mg BIDPRN PRN PO 01/31/25 20:30 Nitroglycerin 0.4 mg Q5MINP PRN SL 01/31/25 20:30 Morphine Sulfate 2 mg Q30M PRN IV 01/31/25 20:30 Heparin Sodium/ Dextrose 250 ml @ 12 mls/hr [id number] IV 02/04/25 09:45 UNV Clopidogrel Bisulfate 75 mg DAILY PO 02/05/25 10:00 Aspirin 81 mg DAILY PO 02/05/25 10:00 Atorvastatin Calcium 80 mg HS PO 02/04/25 22:00 objective GENERAL: Alert and oriented x 3. No acute distress. EYES: PERRL, EOMI. Anicteric. HENT: Moist mucous membranes. LUNGS: Clear to auscultation bilaterally. CARDIOVASCULAR: Regular rate and rhythm. ABDOMEN: Soft, nontender and nondistended. EXTREMITIES: No edema. NEUROLOGIC: No focal neurological deficits. SKIN: Warm, dry. laboratory and microbiology Laboratory Tests 02/04/25 08:17 02/01/25 14:05 Test 02/01/25 14:05 Range/Units Serum Glucose 256 H 74-106 mg/dL Problem List NSTEMI (non-ST elevated myocardial infarction). Chest pain. RENARD. Diabetes mellitus with hyperglycemia. Generalized weakness. Assessment/Plan Continued all current supportive medical care. Amlodipine, Coreg. Aspirin, Lipitor, Plavix. Heparin drip per pharmacy. Morphine and [place] for pain management. Nitro SL. Additional plan as per the hospital course. Plan discussed with: Patient GATITO CRONIN MD Feb 04, 2025 12:49
[2025-02-04] MEDS: ATORVASTATIN 20 MG TAB PO SCH (23:04)
[2025-02-05 01:00] VITALS: BP 105/69; PULSE 68; RESP 18; TEMP 97.9; O2SAT 97
[2025-02-05 04:00] VITALS: BP 130/88; PULSE 58; RESP 16; TEMP 98.8; O2SAT 99
[2025-02-05 05:00] VITALS: BP 112/69; PULSE 52; RESP 17; TEMP 98.2; O2SAT 98
[2025-02-05 08:00] VITALS: PULSE 54; PULSE 66; RESP 20; O2SAT 99
[2025-02-05 08:30] VITALS: BP 130/90; PULSE 66; RESP 20; TEMP 97.5; O2SAT 99
[2025-02-05] MEDS: CLOPIDOGREL BISULFATE 75 MG TAB PO SCH (09:07)
--- NOTE | 2025-02-05 12:12 | DVHDS2 ---
Discharge Summary Date of Admission Jan 31, 2025 at 20:29 Date of Discharge: Feb 05, 2025 Admitting Diagnosis NSTEMI (non-ST elevated myocardial infarction) Acute chest pain Acute renal injury Diabetes mellitus with hyperglycemia Generalized weakness Labs/Diagnostic Data: Laboratory Results Test 02/05/25 11:35 02/04/25 08:17 02/01/25 14:05 02/01/25 09:37 POC Glucose 248 mg/dl (70-106) White Blood Count 8.5 10^3/uL (4.4-10.8) Red Blood Count 4.76 10^6/uL (4.5-5.90) Hemoglobin 14.4 g/dL (13.5-17.5) Hematocrit 43.2 % (41.0-53.0) Mean Corpuscular Volume 90.6 fL (80.0-100.0) Mean Corpuscular Hemoglobin 30.2 pg (28.0-32.0) Mean Corpuscular Hemoglobin Concent 33.3 g/dL (32.0-36.0) Red Cell Distribution Width 13.7 % (11.8-14.3) Platelet Count 166 10^3/uL (140-450) Mean Platelet Volume 10.6 fL (6.9-10.8) Neutrophils (%) (Auto) 64.9 % (37.0-80.0) Lymphocytes (%) (Auto) 24.1 % (10.0-50.0) Monocytes (%) (Auto) 7.5 % (0.0-12.0) Eosinophils (%) (Auto) 3.2 % (0.0-7.0) Basophils (%) (Auto) 0.3 % (0.0-2.0) Neutrophils # (Auto) 5.5 10 ^3/uL (1.6-8.6) Lymphocytes # (Auto) 2.0 10 ^3/uL (0.4-5.4) Monocytes # (Auto) 0.6 10 ^3/uL (0-1.3) Eosinophils # (Auto) 0.3 10 ^3/uL (0-0.8) Basophils # (Auto) 0 10 ^3/uL (0-0.2) Nucleated Red Blood Cells 0.1 % Prothrombin Time 11.3 sec (9.3-11.8) Prothrombin Time INR 1.07 (0.9-1.15) Activated Partial Thromboplast Time 47.6 SEC (24.5-34.5) Sodium Level 135 mmol/L (136-145) Potassium Level 4.2 mmol/L (3.5-5.1) Chloride Level 99 mmol/L (98-107) Carbon Dioxide Level 25 mmol/L (20-31) Anion Gap 11 (5-15) Blood Urea Nitrogen 17 mg/dL (9-23) Creatinine 1.23 mg/dL (0.700-1.30) Glomerular Filtration Rate Calc 66 mL/min (>90) BUN/Creatinine Ratio 13.8 (10.0-20.0) Serum Glucose 256 mg/dL (74-106) Calcium Level 9.5 mg/dL (8.7-10.4) Total Bilirubin 0.7 mg/dL (0.2-1.0) Aspartate Amino Transferase (AST) 45 U/L (13-40) Alanine Aminotransferase (ALT) 46 U/L (7-40) Alkaline Phosphatase 40 U/L (46-116) Total Protein 6.8 g/dL (5.7-8.2) Albumin 4.0 g/dL (3.2-4.8) Thyroid Stimulating Hormone (TSH) 4.07 uIU/mL (0.55-4.78) Test 01/31/25 16:10 01/31/25 15:11 Urine Color Light-yellow (Yellow) Urine Clarity Clear (Clear) Urine pH 5.5 (5.0-9.0) Urine Specific [place] 1.012 (1.001-1.035) Urine Protein Negative (Negative) Urine Ketones Negative (Negative) Urine Blood Negative /uL (Negative) Urine Nitrite Negative (Negative) Urine Bilirubin Negative (Negative) Urine Urobilinogen Normal mg/dL (Negative) Urine Leukocyte Esterase Negative /uL (Negative) Urine RBC 1 /hpf (0 - 3) Urine Microscopic WBC < 1 /HPF (0-3) Urine Squamous Epithelial Cells None seen /hpf (<5) Urine Bacteria None seen /hpf (None Seen) Urine Glucose 4+ mg/dL (Normal) Troponin I High Sensitivity 3748 ng/L (</=54) Other Laboratory Tests 02/04/25 08:17 02/01/25 14:05 Brief Hx & Hospital Course: The patient is a 64-year-old male with past medical history of hypothyroidism, diabetes mellitus, and hypertension who presented to [facility] ED with complaint of chest pain. Patient reports he has been experiencing substernal chest pain, rating 7/10 numeric scale, associated with sweating, nausea, and generalized weakness. Patient was seen and evaluated in the ED, laboratory data shows WBC 11.1, platelets 217, sodium 137, potassium 3.9, BUN 15, creatinine 1.53, glucose 294, calcium 10.1, troponin 3748, AST 28, ALT 44, blood pressure 148/92, heart rate 76, temperature 98.2 F, O2 saturation 97% on room air. Chest x-ray show no acute cardiopulmonary disease. Patient was started on heparin drip. Business Banker saw the patient and cardiac cath was done. The right heart cath showed: Normal left main. Left anterior descending artery immediately after its origin, there is underlying 99.9% narrowing and ROMAIN grade 2 flow has been noted. The diagonal artery also 99%. The circumflex obtuse marginal artery is a very large dominant artery. The distal region of the circumflex artery has a 90% blockage which appears like a posterior descending artery arising from left circumflex artery. Obtuse marginal artery is normal. The right coronary artery is nondominant artery and is normal. Left heart cath showed: Mechanical thrombectomy of the left anterior descending artery with 6- Sin[place]a [place] catheter. Balloon angioplasty of the proximal region of the left anterior descending artery with 2.5 x 12 mm length semi-compliant balloon. The stenting and angioplasty of the proximal region of the left anterior descending artery with 3.0 x 23 mm length Silviano [place] drug-eluting stent of [place]. Intra-arterial administration of the Integrilin bolus. Balloon coronary artery angioplasty of the diagonal artery. Dr Tipton, construction carpenters helper recommend:Amlodipine, Coreg. Aspirin, Lipitor, Plavix. The patient is doing well today. No shortness of breast, no chest pain. I am going to discharge patient home today. Follow up with PCP 1-2 weeks. Follow up construction carpenters helper per schedule. Activity as tolerate. Diet: low salt, low cholesterol diet. Physical examination: General Appearance: Alert, Oriented X3 HEENT: Atraumatic, PERRLA, EOMI, Mucous membr. moist/pink Lungs: Clear to auscultation, Normal air movement Cardiovascular: Regular rate, Normal S1, Normal S2, No murmurs, Gallops, Rubs Abdomen: Normal bowel sounds Neuro: Cranial nerves 3-12 NL Psych/Mental Status: Mental status NL Condition at Discharge: Stable Final Diagnosis/Problems List NSTEMI (non-ST elevated myocardial infarction) Acute chest pain Acute renal injury Diabetes mellitus with hyperglycemia Generalized weakness Discharge Disposition: Home Discharge Instruct/Medications Diet: Cardiac 2g Na,low cholest Activity: No Restrictions, As Tolerated Follow Up/Referral: pcp 1-2 weeks Medications: see med list Scheduled Amlodipine Besylate (Amlodipine Besylate), 1 TAB PO DAILY, (Reported) Amlodipine Besylate (Norvasc Tablet), 5 MG PO DAILY Aspirin (Aspir-Low), 1 TAB PO DAILY, (Reported) Aspirin (Aspirin Low Dose), 81 MG PO DAILY Atorvastatin Calcium (Atorvastatin Calcium), 1 TAB PO DAILY Carvedilol (Coreg), 12.5 MG PO Q12HR Clopidogrel Bisulfate (Clopidogrel), 75 MG PO DAILY Glipizide (Glipizide), 2 TAB PO BID, (Reported) Hydrochlorothiazide (Hydrochlorothiazide), 1 TAB PO DAILY, (Reported) Insulin Glargine-Yfgn (Insulin Glargine), 10 UNIT SC QPM, (Reported) Levothyroxine Sodium (Levothyroxine Sodium), 88 MCG PO QAM@0600 Lisinopril (Lisinopril), 1 TAB PO BID, (Reported) Metformin Hydrochloride (Metformin Hydrochloride E), 1 TAB PO BID, (Reported) Discontinued Medications Levothyroxine Sodium (Levothyroxine Sodium), 75 MCG PO QAM, (Reported) Discontinued Reason: Prescription changed Levothyroxine Sodium (Levothyroxine Sodium), 1 TAB PO DAILY, (Reported) Metformin Hydrochloride (Metformin Hcl), 750 MG PO IBID, (Reported) Discontinued Reason: Prescription changed Discharge Statement: "Patient was advised to return to the ER or call 911 if any headaches, dizziness, shortness of breath, chest pain, abdominal pain, bleeding, fevers, or worsening of medical condition. Patient was counseled about treatment plan, medications, possible side effects, patientverbalized understanding. All questions were answered to the best of my ability. This discharge took greater then 30 minutes in planning, reviewing documentation, counseling the patient, and discussing with other team members." ASSESSMENT ASSESSMENT Assessment chest pain Date of Service: Feb 05, 2025 Billing Provider: TAYLOR MCCORD MD Common Visit Codes: 80375-QSZ/OBS DISCH DAY >30min TAYLOR MCCORD MD Feb 05, 2025 12:11
[2025-02-05] MEDS ORDERED: AML5T PO (12:14)
[2025-02-05] MEDS ORDERED: CLOP75TA70 PO (12:14)
[2025-02-05] MEDS ORDERED: ATOR-47 PO (12:14)
[2025-02-05] MEDS ORDERED: ASPI-325 PO (12:14)
[2025-02-05 12:46] VITALS: BP 129/80; PULSE 56; RESP 18; TEMP 97.6; O2SAT 99
--- NOTE | 2025-02-05 21:38 | DVHPN2 ---
Progress Note - Dictate Date Seen: Feb 05, 2025 Medical Necessity Reason Pt with a Central, PICC or Fol: No Subjective Patient was seen and evaluated in follow up. Patient has no new complaints at this time. Patient denies any cardiac symptoms. Patient is cardiac stable for discharge. Telemetry reviewed. vital signs Vital Sign Date Time Temp Pulse Resp B/P (MAP) Pulse Ox O2 Delivery O2 Flow Rate FiO2 02/05/25 09:07 130/90 02/05/25 09:06 66 02/05/25 08:30 97.5 20 99 97.5 02/05/25 08:00 Room Air* 0 21 Total Intake and Output 02/04/25 02/04/25 02/05/25 15:00 23:00 07:00 Intake Total 0 ml 275 ml Output Total 600 ml Balance -600 ml 275 ml medications Current Medications Medications Dose Ordered Sig/Alysa Route Start Time Stop Time Status Last Admin Dose Admin Morphine Sulfate 4 mg [id number] PRN IV 01/31/25 17:15 Cancel Ondansetron HCl 4 mg Q4HPRN PRN IV 01/31/25 17:15 Cancel Nitroglycerin 0.4 mg ONCE PRN SL 01/31/25 17:15 Cancel Amlodipine Besylate 5 mg DAILY PO 02/01/25 10:00 02/05/25 09:07 5 MG Carvedilol 12.5 mg Q12HR PO 01/31/25 22:00 02/05/25 09:06 12.5 MG Levothyroxine Sodium 88 mcg QAM@0600 PO 02/01/25 06:00 02/05/25 05:01 88 MCG Diagnostic Test (Pha) 1 strip IQ4HR 02/01/25 00:00 02/05/25 11:42 1 STRIP Insulin Human Regular IQ4HR SC 02/01/25 00:00 02/05/25 11:44 6 UNITS Dextrose 50 ml UD PRN IV 01/31/25 20:30 Sodium Chloride 10 ml Q8HR IV 01/31/25 22:00 02/05/25 05:01 10 ML Acetaminophen/ Hydrocodone Bitart 1 tab Q4HP PRN PO 01/31/25 20:30 Ondansetron HCl 4 mg Q4HP PRN IV 01/31/25 20:30 Docusate Sodium 100 mg BIDPRN PRN PO 01/31/25 20:30 Nitroglycerin 0.4 mg Q5MINP PRN SL 01/31/25 20:30 Morphine Sulfate 2 mg Q30M PRN IV 01/31/25 20:30 Clopidogrel Bisulfate 75 mg DAILY PO 02/05/25 10:00 02/05/25 09:07 75 MG Aspirin 81 mg DAILY PO 02/05/25 10:00 02/05/25 09:06 81 MG Atorvastatin Calcium 80 mg HS PO 02/04/25 22:00 02/04/25 23:04 80 MG objective GENERAL: Alert and oriented x 3. No acute distress. EYES: PERRL, EOMI. Anicteric. HENT: Moist mucous membranes. LUNGS: Clear to auscultation bilaterally. CARDIOVASCULAR: Regular rate and rhythm. ABDOMEN: Soft, nontender and nondistended. EXTREMITIES: No edema. NEUROLOGIC: No focal neurological deficits. SKIN: Warm, dry. laboratory and microbiology Laboratory Tests 02/04/25 08:17 02/01/25 14:05 Test 02/01/25 14:05 Range/Units Serum Glucose 256 H 74-106 mg/dL Problem List NSTEMI (non-ST elevated myocardial infarction). Chest pain. RENARD. Diabetes mellitus with hyperglycemia. Generalized weakness. Assessment/Plan Continued all current supportive medical care. Amlodipine, Coreg. Aspirin, Plavix. Morphine and [place] for pain management. Nitro SL. Additional plan as per the hospital course. Plan discussed with: Patient GATITO CRONIN MD Feb 05, 2025 12:09
== END 2025-02-05 14:55 | disposition home or self-care (01) | DRG 359 ==
LOC: ER 09:50 → OVERFLOW 20:29 → TELE-CENTR 20:45 → TELE-WESTW 02-05 04:19
PROVIDERS: ADMIT Internal Medicine; ATTEND Internal Medicine
PROC: 027034Z Dilation of Coronary Artery, One Artery with Drug-eluting Intraluminal Device, Percutaneous Approach (ICD-10-PCS; principal; 2025-02-04)
PROC: 02C03ZZ Extirpation of Matter from Coronary Artery, One Artery, Percutaneous Approach (ICD-10-PCS; 2025-02-04)
PROC: 02703ZZ Dilation of Coronary Artery, One Artery, Percutaneous Approach (ICD-10-PCS; 2025-02-04)
PROC: 3E073PZ Introduction of Platelet Inhibitor into Coronary Artery, Percutaneous Approach (ICD-10-PCS; 2025-02-04)
PROC: 03HY32Z Insertion of Monitoring Device into Upper Artery, Percutaneous Approach (ICD-10-PCS; 2025-02-04)
PROC: B211YZZ Fluoroscopy of Multiple Coronary Arteries using Other Contrast (ICD-10-PCS; 2025-02-04)
DX: I21.4 Non-ST elevation (NSTEMI) myocardial infarction (principal); N17.0 Acute kidney failure with tubular necrosis; E03.9 Hypothyroidism, unspecified; E11.65 Type 2 diabetes mellitus with hyperglycemia; I10 Essential (primary) hypertension; Z82.49 Family history of ischemic heart disease and other diseases of the circulatory system; Z79.899 Other long term (current) drug therapy
CPT/HCPCS: 36415; 71045; 80053; 81001; 82962; 84443; 84484; 85025; 85610; 85730; 86850; 86900; 86901; 92928; 92941; 92979; 93005; 93454; 96374; 99152; 99291; G0378; J1815; J2250; Q9967